=== PATIENT | male | born 1945 | race Caucasian/White ===

== ENCOUNTER 2020-03-20 05:35 | Day surgery (SDC) | payer MEDICARE, OTHER ==
--- NOTE | 2020-03-13 10:00 | NUR ---
PT SEEN FOR PREADMIT TODAY. PT REPORTS HX HTN BUT NO LONGER TAKES MEDICATION. PT REPORTS FAINTING/PASSING OUT WITH HTN MEDICATIONS. PT STATES, "MY BLOOD PRESSURE WAS NEVER REALLY A PROBLEM BUT I TRIED MEDICATIONS THAT JUST DIDN'T WORK." BP TODAY IN OFFICE 134/82. DENIES SEEING FORM SETTER SUPERVISOR. INSTRUCTIONS GIVEN AND ALL QUESTIONS ANSWERED.
[~2020-03-20] VITALS: Ht 188 cm; Wt 87.1 kg
--- NOTE | ~2020-03-20 | OR ---
[facility] [address], [place] [address] Draft DATE OF OPERATION: 03/20/2020 SURGEON: Meir Garrett MD PREOPERATIVE DIAGNOSES: 1. History of stage Ta low-grade bladder cancer, with previous tumor recurrences. 2. Benign prostatic hyperplasia with lower urinary tract symptoms. POSTOPERATIVE DIAGNOSES: 1. History of stage Ta low-grade bladder cancer, with previous tumor recurrences. 2. Benign prostatic hyperplasia with lower urinary tract symptoms. 3. Subcentimeter papillary tumor located on the left lateral wall of the bladder, consistent with tumor recurrence. NAMES OF PROCEDURES: 1. Urethral dilation using Isai sounds from 18-Grenadian to 30-Grenadian. 2. Transurethral resection of bladder tumor-small. 3. Intravesical instillation of 40 mg in 20 mL of mitomycin chemotherapy. ANESTHESIA: General. ESTIMATED BLOOD LOSS: Minimal. COMPLICATIONS: None. SPECIMENS: The subcentimeter papillary tumor was resected completely and the resected fragments were placed in a specimen cup to be sent to pathology for evaluation. DRAINS: A 20-Grenadian two-way catheter capped and secured to the patient's abdomen after intravesical instillation of mitomycin chemotherapy. INDICATIONS FOR PROCEDURE: Mr. Funes is a very pleasant 74-year-old gentleman with a history of stage Ta low-grade bladder cancer, who presents today to undergo TURBT, small for resection of an obvious tumor recurrence noted on recent surveillance cystoscopy. He is a former PATIENT NAME: NATALYA FUNES OPERATIVE REPORT DATE OF : 43 REPORT #: [id number] PHYSICIAN: MEIR GARRETT MD PCP: NO PRIMARY CARE PHYSICIAN REPORT IS CONFIDENTIAL AND NOT TO BE RELEASED WITHOUT AUTHORIZATION [facility] [address], [place] [address] Flores, who resected a large papillary tumor in 2009. He experienced another bladder tumor recurrence in 2012. He had been disease-free since just recently when he was noted to have a subcentimeter papillary tumor located on the left lateral wall of his bladder. He presents today to undergo the aforementioned procedure. OPERATIVE FINDINGS: 1. Digital rectal examination was performed today with the patient under anesthetic. The rectal examination revealed an enlarged 60 g prostate that was soft, smooth, and symmetric with no focal nodules. 2. Diagnostic cystoscopy reveals a partially circumscribed papillary mass located lateral to the left ureteral orifice. The left ureteral orifice did not appear to be involved with any tumor. This tumor was resected using a 24-Grenadian bipolar loop down to the level of the perivesical fat without difficulty. Because there was no obvious evidence of involvement of the left ureteral orifice, I did not feel the need to resect this area. 3. There were no other obvious evidence of tumor recurrence throughout the remaining bladder wall. The right ureteral orifice appeared normal as well. Of note that the patient does have a slightly elevated bladder neck, but no significant lateral lobe hypertrophy. 4. After the tumor was successfully resected and the tumor bed cauterized, a 20-Grenadian two-way Larkin catheter was inserted into the patient's bladder. The mitomycin was then infused through the catheter into the patient's bladder without difficulty. The catheter was then capped and then secured to the patient's abdomen. A total of 40 mg in 20 mL of mitomycin was instilled into the patient's bladder. DESCRIPTION OF PROCEDURE: After informed consent was obtained, the patient was taken back to the operating room. He was transferred from the [facility] to the operating room table, where general anesthesia was induced. He was then placed in the dorsal lithotomy position and his genitalia were prepped and draped in a standard sterile fashion. Using a 30-degree lens, a 28-Grenadian sheath was inserted into the patient's bladder using a visual obturator. Diagnostic cystoscopy was then performed. Please see above findings. The visual obturator was then switched out for the resectoscope. Prior to this, the patient's urethra was dilated using Oscoda sounds from 18-Grenadian to 30-Grenadian without difficulty. Once the resectoscope was in the bladder, I had noted the location of the bilateral ureteral orifices and then noted the location of the papillary tumor on the left lateral wall of the bladder. I then resected the tumor in a total of 3 strokes. I did resect it down to the level of the perivesical fat. The base of the tumor was then resected and cauterized without difficulty. The 3 fragments of the tumor were then collected from the bladder using a Roz syringe and placed it in a specimen cup to be sent to Pathology. The bipolar resectoscope was then used to cauterize the tumor base and the biopsy bed. I then again thoroughly evaluated the bladder to be sure I was not missing PATIENT NAME: NATALYA FUNES OPERATIVE REPORT DATE OF : 43 REPORT #: [id number] PHYSICIAN: MEIR GARRETT MD PCP: NO PRIMARY CARE PHYSICIAN REPORT IS CONFIDENTIAL AND NOT TO BE RELEASED WITHOUT AUTHORIZATION [address] [address] Draft any other areas of recurrence. Once I was satisfied that the lesion had been removed and the area cauterized, I removed the resectoscope. A catheter was placed in the patient's bladder and then was manually irrigated to confirm adequate placement. The patient's bladder was then drained completely and then 40 mg in 20 mL of mitomycin was instilled into the patient's bladder, and the catheter was capped and secured to the abdomen. The procedure was then terminated. The patient tolerated the procedure well without any complication. He will now be transferred to the postanesthesia care unit in stable condition. DISPOSITION: I discussed the results of today's procedure with both the patient and his and answered all of their questions. Because I did resect down to the level of the perivesical fat, I told the patient today that I would like for him to go home with a catheter and maintain the catheter to gravity drainage for a week to allow proper healing of his bladder. Because he does have a history of BPH and incomplete bladder emptying, I want to be sure that his bladder empties completely during the healing portion of his recovery. Because there was no resection at the level of the left ureteral orifice, he did not require an indwelling left ureteral stent today. He will return to clinic in one week to meet up with the clinic nurse to undergo a voiding trial. She will schedule a followup with me, at which point, we will discuss the results of his biopsy. He was sent home today with cephalexin 500 mg p.o. b.i.d., along with B and O suppository and Percocet as needed. MD OSVALDO Lyons/GLORIA /[id number] Copies: ~ PATIENT NAME: NATALYA FUNES OPERATIVE REPORT DATE OF : 43 REPORT #: [id number] PHYSICIAN: MEIR GARRETT MD PCP: NO PRIMARY CARE PHYSICIAN REPORT IS CONFIDENTIAL AND NOT TO BE RELEASED WITHOUT AUTHORIZATION
[~2020-03-20 05:35] MED LIST: ADULT LOW DOSE81 MG PO; FISH OIL 1,0001 EAC2 NG; NORCO 5-325 TA1 EACH PO; OCUVITE TABLET1 EAC1 PO; PROTONIX40 MG PO; PYRIDIUM200 MG PO; TIZANIDINE HCL4 M1 PO; VITAMIN B-250 MG PO; ZESTORETIC 20-251 EA PO; ZYRTEC10 MG PO
--- NOTE | 2020-03-20 08:27 | NUR ---
03/20/20 0827 Kerry Correa 0819- PT TO PACU IN SF POSITION EYES OPEN. FOLLOWS COMMANDS APPROPRIATELY BUT DROWSY. STATES HE IS COMFORTABLE. DENIES PAIN NAUSEA. BREATHING EASY AND UNLABORED. SPO2 >95% ON 10L O2 VIA SIMPLE MASK. 0825- PT CONTINUES TO REST. BREATHING EASY AND UNLABORED. SPO2 >95%. O2 TITRATED DOWN TO [address], CLAMPED AND TAPED TO ABDOMEN. PT DENIES NAUSEA AND PAIN.
[2020-03-20] MEDS ORDERED: PERCOCET 5-3251 EACH PO (09:06)
[2020-03-20] MEDS ORDERED: KEFLEX500 MG PO (09:06)
[2020-03-20] MEDS ORDERED: BELLADONNA-OPIU30 MG PR (09:07)
--- NOTE | 2020-03-20 09:50 | NUR ---
LE 0929: MITOMYCIN IS EMPTIED OUT OF BLADDER, 350MLS OF MARCUS COLORED URINE IS EMPTIED OUT OF BLADDER. GRAVITY BAG IS ATTACHED TO 20 FR TAYLOR. LE 0945: PT IS GIVEN PUDDING AND EDUCATED TO CALL WHEN HE IS FINISHED. HE IS TOLERATING WATER.
--- NOTE | 2020-03-20 10:18 | NUR ---
CRISTELA 0955: PT IS GIVEN VERBAL DC INSTRUCTIONS, HE VERBALIZES UNDERSTANDING. PT IS GIVEN EDUCATION ON CARING FOR TAYLOR, HE VERBALIZES UNDERSTANDING. PT DRESSES HIMSELF. HE IS TAKEN TO VEHICLE VIA WC, HE TRANSFERS HIMSELF FROM WC TO VEHICLE.
--- NOTE | 2020-03-22 13:09 | PATH ---
[facility] [address] [facility] [place], [place] [address] Signed THIS IS AN ADDENDUM REPORT SPECIMEN(S): A LEFT LATERAL WALL TUMOR SPECIMEN SOURCE: A. LEFT LATERAL WALL TUMOR CLINICAL HISTORY: Left lateral wall bladder tumor. Pre: Bladder cancer, mass. Post: Same, TURBT. 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 COMMENT: As part of [facility]' Quality Improvement Program, this case was reviewed by another member of our pathology staff. DN:MIRIAM:renard:C2NR MICROSCOPIC EXAMINATION: Histologic sections of all submitted blocks are examined by light microscopy. These findings, together with the gross examination, support the pathologic diagnosis. GROSS DESCRIPTION: The specimen, labeled "FW, A.," and designated on the requisition "left lateral wall bladder tumor," is received in formalin and consists of three corado-pink rubbery tissue fragments measuring 1.6 x 1.3 x 0.4 cm in aggregate and weighing less than 2 grams. Specimen is entirely submitted in cassette (A1). AT (under the direct supervision of a pathologist) The Gross Description was prepared using a voice recognition system. The report was reviewed for accuracy; however, sound-alike word errors, addition and/or deletions may occur. If there is any question about this report, please contact Client Services. PERFORMING LABORATORY: The technical component was performed by [facility], [address] [place] [id number] (Tank Shop Supervisor: Minnie Maldonado MD; CLIA# [id number]). Professional interpretation was performed by PATIENT NAME: NATALYA CASTILLO PATHOLOGY DATE OF : 43 REPORT #: [id number] PHYSICIAN: BRITTANYYTE PATHOLOGY PCP: NO PRIMARY CARE PHYSICIAN REPORT IS CONFIDENTIAL AND NOT TO BE RELEASED WITHOUT AUTHORIZATION [facility] [address] [place], [place] [address] Signed [facility], [facility], [address] [place] [address] (CLIA#: [id number]). REASON FOR ADDENDUM: To add results of cytology review. ADDENDUM COMMENT: The patient's recent atypical urine cytology was reviewed ([id number]). The atypical cells present on the cytology correlate with the bladder biopsy. DN:[facility] Diagnostician: Red Raya MD Pathologist Electronically Signed 03/22/2020 Copies: ~ PATIENT NAME: NATALYA CASTILLO PATHOLOGY DATE OF : 43 REPORT #: [id number] PHYSICIAN: BRITTANYYTE PATHOLOGY PCP: NO PRIMARY CARE PHYSICIAN REPORT IS CONFIDENTIAL AND NOT TO BE RELEASED WITHOUT AUTHORIZATION
== END 2020-03-20 10:05 | disposition home or self-care (01) ==
LOC: DS 05:35
PROVIDERS: Urology
PROC: 0TBC0ZX Excision of Bladder Neck, Open Approach, Diagnostic (ICD-10-PCS; principal; 2020-03-20 06:45)
DX: C67.8 Malignant neoplasm of overlapping sites of bladder (principal); N40.1 Benign prostatic hyperplasia with lower urinary tract symptoms; N13.8 Other obstructive and reflux uropathy; K21.9 Gastro-esophageal reflux disease without esophagitis; Z79.899 Other long term (current) drug therapy; Z79.82 Long term (current) use of aspirin; Z98.890 Other specified postprocedural states; Z88.0 Allergy status to penicillin; Z88.5 Allergy status to narcotic agent
CPT/HCPCS: 00912; C1769; J0696; J1100; J1885; J2250; J2405; J2704; J3010; J7121; J9280

== ENCOUNTER 2021-02-24 13:41 | Emergency (ER) | payer MEDICARE, OTHER ==
[~2021-02-24] VITALS: Ht 188 cm; Wt 78.9 kg
[~2021-02-24 13:41] MED LIST changes: +BELLADONNA-OPIU30 MG PR; +KEFLEX500 MG PO; +PERCOCET 5-3251 EACH PO
[2021-02-24] MEDS ORDERED: FLOMAX0.4 MG PO (14:14)
[2021-04-09] MEDS ORDERED: PROTONIX40 M1 PO (09:48)
== END 2021-02-24 18:15 | disposition home or self-care (01) ==
LOC: ED 13:41
DX: K52.9 Noninfective gastroenteritis and colitis, unspecified (principal); I10 Essential (primary) hypertension; K21.9 Gastro-esophageal reflux disease without esophagitis; Z88.6 Allergy status to analgesic agent; Z88.8 Allergy status to other drugs, medicaments and biological substances; Z88.0 Allergy status to penicillin; Z88.2 Allergy status to sulfonamides; Z88.1 Allergy status to other antibiotic agents; Z88.5 Allergy status to narcotic agent; Z79.899 Other long term (current) drug therapy; Z79.82 Long term (current) use of aspirin
CPT/HCPCS: 80053; 81001; 83735; 85025; 99284; J7040

== ENCOUNTER 2021-04-12 06:20 | Observation (INO) | payer MEDICARE, OTHER ==
[~2021-04-12] VITALS: Ht 185.4 cm; Wt 86.4 kg
[~2021-04-12 06:20] MED LIST changes: +FLOMAX0.4 MG PO; +PROTONIX40 M1 PO
--- NOTE | 2021-04-12 10:18 | NUR ---
04/12/21 1018 Sheets,Jazmin 3382 PT ARRIVED TO PACU ON 6L VIA MASK, WITH ORAL AIRWAY IN PLACE. RESP EVEN AND UNLABORED. VSS. PT NONAROUSABLE TO PAINFUL STIMULI.
--- NOTE | 2021-04-12 11:25 | NUR ---
PT.'S WAITING IN THE ROOM. UPDATED HER AND DISCUSSED WHAT TO EXPECT.
--- NOTE | 2021-04-12 11:45 | NUR ---
REPORT RECEIVED FROM HIDE HANDLER AND PT ARRIVED VIA STRETCHER. VITALS STABLE. IV SITE FLUSHES WELL AND IVF ADMIN. PT. REPORTS 10 SHARP/ACHING PAIN. PT. HAS HAD FENTANYL, TYLENOL AND DILAUDID IN PACU AND PAIN HAS NOT BEEN UNDER CONTROL. PT. STATES PERCOCET HAS WORKED IN THE PAST. GIVEN PUDDING AND CRACKERS AND WILL ADMIN PERCOCET AFTER EATING. ACTICOAT DRESSING AT INCISION SITE HAS SMALL AMOUNT OF SHADOWING BUT IS INTACT. FRANK DRAIN PATENT AND DRAINING SANGUINOUS DRAINAGE. BOWEL TONES HYPOACTIVE. DISCUSSED PAIN MANAGMENT, AMBULATING AND POC. PT. LEFT RESTING WITH CALL LIGHT IN REACH.
--- NOTE | 2021-04-12 13:00 | NUR ---
PT. PLACED ON ROOM AIR AND 02 SAT. WAS 93%. FRANK DRESSING HAS SANGUINOUS DRAINAGE ON GAUZE.DRAIN STRIPPED AND SAFETY PINNED TO GAUZE. NO CHANGES TO INCISION DRESSING. BOWEL TONES ACTIVE. PT. REPORTS TOLERABLE ABDOMINAL PAIN AT THIS TIME. TOLERATING PO FLUIDS AND REGULAR DIET AND DENIES NAUSEA. AMBULATED AROUND THE ROOM AND VOIDING. PT. STATES HE HAS A HARD TIME EMPTYING BLADDER DUE TO BLADDER CANCER. LEFT RESTING IN BED WITH CALL LIGHT IN REACH.
--- NOTE | 2021-04-12 14:10 | NUR ---
PT. IS ALERT AND ORIENTED, ON ROOM AIR. PT. REQUESTED ATHELETE FOOT MEDS. NOTIFIED AND OKAY IF BRINGS IN HOME MED FOR FEET. INCISION SITE DRESSING HAS A SMALL AMOUNT OF NEW SHADOWING BUT IS INTACT. FRANK DRESSING SHADOWING REMAINS UNCHANGED. PT. REPORTS 5/10 PAIN, BUT REFUSES PAIN MED AT THIS TIME. PT. HAS VOIDED 75ML SINCE ARRIVAL. HE STATES BLADDER CANCER MAKES IT DIFFICULT TO VOID. WILL CONTINUE TO MONITOR.
--- NOTE | 2021-04-12 15:15 | NUR ---
PT. ABLE TO VOID AGAIN AND USED CALL LIGHT APPROPRIATELY TO EMPTY URINAL. ABDOMINAL PAIN INCREASED AND IS CONSTANT. ADMIN. 4MG IVP MORPHINE. DRESSING HAS SEVERAL SMALL AREAS OF SANGUINOUS SHADOWING. FRANK DRAIN PATENT AND DRESSING HAS SANGUINOUS SHADOWING. BOWEL TONES ACTIVE. PT. TOLERATED REG. DIET AND PO FLUIDS. LEFT RESTING WITH IN THE ROOM
[2021-04-12] MEDS ORDERED: CICLOPIROX6.6 ML TOP (16:43)
[2021-04-12] MEDS ORDERED: PANTOPRAZOLE SO40 MG PO (16:43)
[2021-04-12] MEDS ORDERED: ATHLETIC FOOT C30 GM TOP (17:41)
--- NOTE | 2021-04-12 17:41 | NUR ---
MED REC COMPLETE
--- NOTE | 2021-04-12 19:20 | NUR ---
SHIFT REPORT RECEIVED FROM ERUM PALMA. PT RESTIN IN BED. PAIN 09/27, DENIES NEED FOR INTERVENTION. CPOX @ 98% ON RA. NO NEEDS AT THIS TIME. CALL LIGHT IN REACH.
--- NOTE | 2021-04-12 21:30 | NUR ---
ASSESSMENT, VS AND I&O COMPLETED. GCS 15, A&O X4. LUNGS CLEAR, HEART TONES REGULAR.ABD MILDLY DISTENDED, BOWEL TONES ACTIVE, TENDER, INCISIONS COVERED, ACTICOAT 1//2 COVERED WITH SHADOWING, FRANK WNL, SS OUTPUT. CMS INTACT. IV WNL, FLUSHED WELL, IV FLUIDS INFUSING PER ORDER. PT DENIES PAIN. NO OTHER NEEDS. CALL LIGHT IN REACH.
--- NOTE | 2021-04-13 | NUR ---
PT RESTING IN BED, EYES CLOSED. RR EVEN, UNLABORED. CALL LIGHT IN REACH.
--- NOTE | 2021-04-13 00:53 | NUR ---
PT REPORTS DRAINAGE FROM INCISION. 3/4 OF ACTICOAT IS SATURATED WITH DILUTE BLOOD. DRESSING CHANGED, FRANK SITE DRESSING CHANGED, GAUZE AND TAPE. NO OTHER NEEDS. CALL LIGHT IN REACH.
--- NOTE | 2021-04-13 03:40 | NUR ---
PT STATES HE HAS 9/10 ABD PAIN, PRN PAIN MED PROVIDED. ASSESSMENT COMPLETED. FRANK DRAIN DRESSING CHANGED. IV WNL, IV FLUIDS INFUSING PER ORDER. NO OTHER NEEDS AT THIS TIME. ICE PACK PROVIDED. CALL LIGHT IN REACH.
--- NOTE | 2021-04-13 06:47 | NUR ---
PT PAIN WELL MANAGED WITH SCHEDULED AND PRN MEDS. DRESSINGS CHANGED X3 DUE TO MODERATE, ESTIMATED 100ML, BLOOD DRAINAGE AT INCISION SITE. VSS, UOS. IV WNL. 60ML SS OUTPUT IN FRANK DRAIN. ABD FIRM, TENDER, BOWEL TONES ACTIVE WITH MILD DISTENTION. PT DOES NOT REPORT FLATUS YET.
--- NOTE | 2021-04-13 08:00 | NUR ---
REPORT RECEIVED FROM NIGHT RN AND PT. CARE RESUMED. PT. IS ALERT AND ORIENTED. HE AMBULATED WITH SBA FROM BED TO CHAIR. HE REPORTS ACHING ABDOMINAL PAIN AT INCISION SITE AND LOWER BACK PAIN. HE STATES HE WILL WAIT FOR PERCOCET UNTIL 930. NIGHT RN REPORTS CHANGING DRESSING 3X DUE TO DRAINAGE SEEPING THROUGH OPSITE. INCISION SITE DRESSING HAS RED SHADOWING THROUGHOUT BUT IS NOT UNDER OPSITE. FRANK DRAIN PATENT. BOWEL TONES HYPOACTIVE THROUGHOUT. PT. REPORTS NOT PASSING GAS. IV SITE WNL AND FLUSHES WELL. DISCUSSED POC AND AMBULATING THIS MORNING. PT. LEFT RESTING IN BED WITH CALL LIGHT IN REACH.
--- NOTE | 2021-04-13 09:30 | NUR ---
PT REPORTS DRESSING IS LEAKING THROUGH GOWN. FRANK GAUZE DRESSING SATURATED. GAUZE REPLACED. INCISION SITE DRESSING REINFORCED WITH OPSITE. FRANK DRAIN EMPTIED AND STRIPPED. PT. BROUGHT WATER AND NEW GOWN. LEFT RESTING WITH CALL LIGHT IN REACH
--- NOTE | 2021-04-13 10:17 | NUR ---
PATIENT AWAKE IN CHAIR, RN ЮЛИЯ IN ROOM. VITALS AND I&OS CHARTED. LINEN AND GOWN CHANGED. ROOM TIDIED, CALL LIGHT IN REACH
--- NOTE | 2021-04-13 12:19 | NUR ---
ROUNDING ON PT. AND HE DENIES PAIN AT THIS TIME. FRANK DRAIN DRESSING IS LOOSENED WITH SERISANGUINOUS DRAINAGE. REMOVED DRESSING. INCISION SITE DRESSING. SATURATED IN SPOTS, BUT STILL INTACT. WILL CONTINUE TO MONITOR
--- NOTE | 2021-04-13 14:51 | NUR ---
VITALS AND I&OS CHARTED. FRANK DRAINED, PATIENT AMBULATED 2X AROUND NURSES STATION PUSHING IV POLE, TOLERATED WELL. BACK IN BED, CALL LIGHT AND PERSONAL ITEMS IN REACH
--- NOTE | 2021-04-13 15:30 | NUR ---
SPOKE WITH PATIENT IN ROOM. PATIENT WATCHING TV, RELAXED IN BED. PATIENT ORIENTED. PATIENT LIVES IN HOME WITH . DRIVES. WORKS OUTSIDE, IS VERY ACTIVE. PATIENT DENIES USING DME ALTHOUGH HE HAS A CANE AT HOME TO USE. DENIES FINANCIAL PROBLEMS FOR COST OF MEDS/FOOD/UTILITIES. STATES HIS WILL DRIVE HIM HOME AT DISCHARGE. FEELS SAFE TO RETURN HOME. STATES HE HAS BEEN UP WALKING AND FEELS STEADY ON HIS FEET.
--- NOTE | 2021-04-13 16:15 | PATH ---
[facility] [address] [place], [place] [address] Signed SPECIMEN(S): A GALLBLADDER WITH STONES SPECIMEN SOURCE: A. GALLBLADDER WITH STONES CLINICAL HISTORY: Laparoscopic cholecystectomy with IOC, poss. open cholecystectomy. Chronic cholecystitis. FINAL PATHOLOGIC DIAGNOSIS: Gallbladder, cholecystectomy: - Chronic cholecystitis. - Cholelithiasis. NAL:cml:C2NR MICROSCOPIC EXAMINATION: Histologic sections of all submitted blocks are examined by light microscopy. These findings, together with the gross examination, support the pathologic diagnosis. GROSS DESCRIPTION: The specimen, labeled "FW, A.," and designated on the requisition "gallbladder and stones," is received in formalin and consists of Specimen: Disrupted gallbladder. Dimensions: 8.6 x 3.4 cm. Serosa: Violaceous and smooth. Cystic Duct: Unable to grossly identify. Calculi: Multiple black, crystalline calculi measuring 3.2 x 1.5 x 0.4 cm in aggregate. Mucosa: Green-brown and roughened. Wall thickness: Up to 0.3 cm. Lymph node: No pericystic lymph nodes are grossly identified. Additional: None. Assembly Inspector Helper sections are submitted in cassette (A1). AT (under the direct supervision of a pathologist) The Gross Description was prepared using a voice recognition system. The report was reviewed for accuracy; however, sound-alike word errors, addition and/or deletions may occur. If there is any question about this report, please contact Client Services. PERFORMING LABORATORY: PATIENT NAME: NATALYA CASTILLO PATHOLOGY DATE OF : 43 REPORT #: [id number] PHYSICIAN: JOEY ROJAS PCP: IQRA SALGADO PA-C REPORT IS CONFIDENTIAL AND NOT TO BE RELEASED WITHOUT AUTHORIZATION [facility] [address] [place], [place] [address] Signed The technical component was [place] [address] (Brazing Machine Operator Automatic: Minnie Maldonado MD; CLIA# [id number]). Professional interpretation was performed by [facility] [address] [address] (CLIA# [id number]). Diagnostician: Robina West MD Pathologist Electronically Signed 04/13/2021 Copies: ~ PATIENT NAME: NATALYA CASTILLO PATHOLOGY DATE OF : 43 REPORT #: [id number] PHYSICIAN: JOEY ROJAS PCP: IQRA SALGADO PA-C REPORT IS CONFIDENTIAL AND NOT TO BE RELEASED WITHOUT AUTHORIZATION
--- NOTE | 2021-04-13 18:05 | NUR ---
PATIENT UP IN ROOM. VITALS AND I&OS CHARTED. PATIENT FEELING A LITTLE RUN DOWN THIS EVENING, HAS BEEN UP AMBULATING QUITE A BIT THIS AFTERNOON.RN ЮЛИЯ NOTIFIED. CALL LIGHT IN REACH
--- NOTE | 2021-04-13 19:20 | NUR ---
RECEIVED REPORT FROM ЮЛИЯ PALMA ABOUT PATIENT, INTRODUCED AT BEDSIDE. PATIENTHERE POST LAP SREE THAT TURNED INTO OPEN SREE. PATIENT HAS SOME TROUBLES WITH VOIDING BUT ABLE TO STAND AND USE URINAL. HAS DRESSIN IN PLACE CHANGED BY RN LAST NIGHT AND DR CLEVELAND CAME TO ASSESS SITE TODAY. HAS FRANK IN PLACE, GIVEN PERCOCET AND ZOFRAN REPORTS LAST BM 2 DAYS AGO. ON REG DIET. MAINTENANCE FLUIDS RUNNING.
--- NOTE | 2021-04-13 21:10 | NUR ---
IN ROOM TO GIVE EVENING MEDS SEE EMAR, PATIENT REPORTS HE JUST GOT BACK TO BED FROM HAVING A BM AND NOTED TO HAVE PULLED HIS IV, THE TIP IS INTACT STILL CONNECTED TO THE MAINTENANCE FLUIDS, DISCARDE BAG AND TUBING. SITE NOT BLEEDING OR SWOLLEN. REPLACED IV TO RIGHT HAND PER PATIENT REQUEST AND IN A DIFFERENT VEIN. ASKED PATIENT IF HE WOULD LIKE HIS SCHEDULED TYLENOL AT 2200 HE SATES "YES" AND "I DON'T REALLY NEEDS ANYTHING JUST NEED TO GO HOME" INSTRUCTED PATIENT TO BE CAREFUL OF IV NOT TO PULL IT OUT AGAIN, REQUEST HELP GETING UP IF NEEDED. CALL LIGHT IN REACH.
--- NOTE | 2021-04-13 23:55 | NUR ---
IN TO CHECK ON PATIENT, PATIENT UP TO VOID AGAIN. DENIES NEEDING ANYTHING AT THIS MOMENT. STETS HE WILL TRY TO GO TO SLEEP AGAIN. CALL LIGHT IN REACH.
--- NOTE | 2021-04-14 00:16 | NUR ---
PATIENT'S GOWN CHANGED DUE TO LEAKAGE FROM FRANK DRAIN AND POST SURGICAL SITE TO ABDOMEN. BLOOD HAS ONLY SATURATED THE BOTTOM HALF OF THE ACTICOAT DRESSING. PLACED ABD PAD TO LOWER HALF OF SITE TO REINFORCE THIS AREA ALSO 4 X 4 GUAZE UNDER FRANK DRAIN TUBE. APPLIED MEDIPORE TAPE TO OUTSIDE EDGES.
--- NOTE | 2021-04-14 02:38 | NUR ---
PT CALLS TO USE THE BR, PROVIDED. NO OTHER NEEDS. CALL LIGHT IN REACH.
--- NOTE | 2021-04-14 04:04 | NUR ---
PT CALLS TO USE BR, PROVIDED. FRANK DRAIN EMPTIED OF 50ML SS OUTPUT. NO OTHER NEEDS. CALL LIGHT IN REACH.
--- NOTE | 2021-04-14 06:16 | NUR ---
PT DECLINED HIS TYLENOL SCHEDULED FOR THIS MORNING. PATIENT GIVEN ENSURE TO DRINK FOR HUNGER COMPLAINTS.
--- NOTE | 2021-04-14 06:44 | NUR ---
PATIENT HAS BEEN RESTING OFF AND ON DURING NIGHT. AT ONE PINT PT GOT UP TO USE BATHROOM AND YANKED OWN OUT ACCIDENTALLY, RESTARTED IV. MAINTENCAE FLUIDS ARE GOING, PATIENT HAS VOIDED MULTIPLE TIMES HAS BEEN DRINKING P.O. FLUIDS. REPLACED HIS DRESSING TO FRANK SITE TWICE. SUGAR HAS GUAZE AND ABD PAD APPLIE OVER BOTTOM OF SURGICAL DRESSING WICH IS SATURATED TO BOTTOM AREA BUT NOT THROUGH OPSITE.
[2021-04-14] MEDS ORDERED: OXYCODON-ACETA1 EAC2 PO (08:31)
[2021-04-14] MEDS ORDERED: CIPROFLOXACIN500 MG PO (08:31)
[2021-04-14] MEDS ORDERED: ACETAMINOPHEN500 MG PO (08:31)
--- NOTE | 2021-04-14 09:15 | NUR ---
REPORT RECEIVED FROM NIGHT RN AND PT. CARE RESUMED. PT. IS ALERT AND ORIENTED. MD REDRESSED, AND FILLED INCISION SITE WITH GAUZE. DRESSING C.D.I. FRANK DRAIN REMOVED. THIS NURSE PLACED STERI-STRIPS ON LEFT SIDE OF INCISION PER ORDER. PT. TOLERATED WELL. DENIES NAUSEA AND PAIN. BOWEL TONES ACTIVE. DISCUSSED DISCHARGE AND POC. PT. LEFT RESTING WITH CALL LIGHT IN REACH.
--- NOTE | 2021-04-16 16:08 | DS ---
[facility] [address], [place] [address] Signed ADMISSION DATE: 04/12/2021 DISCHARGE DATE: 04/14/2021 REASON FOR ADMISSION: This 75-year-old white man is a patient of [facility] Joseph and has had occasions of right upper abdominal pain without radiation into the back. He has had a 25-pound weight loss, which is of uncertain etiology. He is noted to be eating less and less related to the symptoms which are rather progressive. The gallbladder ultrasound performed in the direction of CLIVE Joseph on December 26, 2020 showed probable gallbladder sludge. There is no specific gallstones or wall thickening. He does have family history of biliary disease in a father and brother, who required cholecystectomy. He has had multiple operations from the past including appendectomy in childhood with complications of wound infection and other interventions including bowel obstruction I believe with midline abdominal incisional hernia repair. He is admitted to undergo laparoscopic cholecystectomy, possible open procedure for chronic persistent cholecystitis. PERTINENT PHYSICAL EXAMINATION: GENERAL: Showed a relatively tall and thin white man in no acute distress. HEENT: Trachea midline. CHEST: Clear. HEART: Regular without murmur. ABDOMEN: Somewhat obese, but soft. He had a dense amorphous scar and incision extended from the symphysis pubis cephalad above the umbilicus. He had no palpable mass. HOSPITAL COURSE: On April 12, 2021, attempts were made for laparoscopic cholecystectomy. Entry to the abdominal cavity was not forthcoming despite efforts to do so due to the intensive scarring and adhesions and so on. Additionally, passage of trocar into the rectus space rather than completely into the abdomen was noted, although he had some distention for pneumoperitoneum. The laparoscope was largely in the rectus sheath area and therefore, conversion to a right subcostal incision and open cholecystectomy was undertaken. There was found to be dense omental adhesions to the gallbladder itself. The gallbladder was not acutely inflamed. The liver was fatty infiltrated, pale in color and blunted on the liver edge. Cholecystectomy was performed. There was attempt, but not possible to perform a cholangiogram due to a scarred and impressively narrowed cystic duct. The gallbladder itself had multiple small black stones in addition to the sludge previously noted. The drain was left in place. Additionally, there was noted to be some amount of blood in the rectus sheath related to attempts to enter the abdomen. Postoperatively, he did well though he was painful in his incision as might be expected. Electronically Signed By: JAROD CLEVELAND MD 04/16/21 1608 PATIENT NAME: NATALYA CASTILLO DISCHARGE SUMMARY DATE OF : 43 REPORT #: [id number] PHYSICIAN: JAROD CLEVELAND MD PCP: IQRA SALGADO PA-C REPORT IS CONFIDENTIAL AND NOT TO BE RELEASED WITHOUT AUTHORIZATION [address] [address] Signed Parenteral and oral medications were required for pain control, the drain showed no sign of bile leakage, bleeding, or other problem. The following day, he was noted to have some ecchymosis of the abdominal wall, which was not entirely surprising given the aforementioned causes. He was advanced in his diet which he tolerated well. On day of discharge on April 14, 2021, he is noted to have separation of the skin in the lateral incision. He had been having reinforcement of his abdominal wound dressing due to some oozing of blood. He was found to have a clot in the subcutaneous space, which was evacuated with sterile technique at the bedside without discomfort to the patient. The lateral aspect of the wound was packed with gauze and Steri-Strips will be reapplied on the dominant portion of the subcostal incision. He does feel ready to go home. He is tolerating oral intake well, has minimal incisional pain. Of note, the patient feels he is developing a urinary tract infection. This has been a recurrent problem for him. Notably, he has not had Larkin catheterization throughout the course of this hospitalization and he does have history of bladder tumor managed by the urologist, Dr. Patiño. A urinalysis will be obtained and empiric treatment was begun with Cipro antibiotic considering his allergic profile shows him allergic to sulfa medication. At home, he will change the wound dressing on a b.i.d. basis and is asked to shower on a daily basis with Hibiclens liquid soap. If he has problems at all with the wound, he will let me know. We will see him back in two weeks rather than usual four to assess his wound. If there are problems in the meantime, he will let me know of course. DISCHARGE MEDICATIONS: Include: 1. Cipro 500 mg one tablet p.o. b.i.d. #14. 2. Percocet 7.5/325 1-2 p.o. q.6 hours as needed for severe pain #6. 3. Tylenol 1 g p.o. q. 6 hours p.r.n. pain #30, refill one for lesser pain. He will continue his usual medication of aspirin enteric-coated 81 mg p.o. daily, Zyrtec 10 mg p.o. daily, vitamin A, C, E and lutein one tablet p.o. daily. 4. Riboflavin 50 mg tablets two tablets p.o. daily. 5. Tamsulosin (Flomax) 0.4 mg p.o. b.i.d. 6. Ciclopirox solution apply to toenails as needed at bedtime. 7. Pantoprazole 40 mg p.o. daily. 8. Clotrimazole Athlete's Foot cream 30 g applied b.i.d. as needed to feet. He will hold off on [place] that he was prescribed previously. DISCHARGE DIAGNOSES: Electronically Signed By: JAROD CLEVELAND MD 04/16/21 1608 PATIENT NAME: NATALYA CASTILLO DISCHARGE SUMMARY DATE OF : 43 REPORT #: [id number] PHYSICIAN: JAROD CLEVELAND MD PCP: IQRA SALGADO PA-C REPORT IS CONFIDENTIAL AND NOT TO BE RELEASED WITHOUT AUTHORIZATION [facility] [address] [place] [id number] Signed 1. Chronic calculous cholecystitis, status post laparoscopic cholecystectomy, conversion to open cholecystectomy due to intraabdominal adhesions. 2. 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 3. Distant history of appendectomy with complex postoperative care in childhood. 4. Probable incisional hernia with repair in the past. 5. Multiple allergies including penicillins, sulfa medications, codeine, aspirin. MD FARZAD Oakley/GLORIA /[id number] cc: [facility] Joseph Copies: ~ Electronically Signed By: JAROD CLEVELAND MD 04/16/21 1608 PATIENT NAME: NOLBERTONATALYA BEAL DISCHARGE SUMMARY DATE OF : 43 REPORT #: [id number] PHYSICIAN: JAROD CLEVELAND MD PCP: IQRA SALGADO PA-C REPORT IS CONFIDENTIAL AND NOT TO BE RELEASED WITHOUT AUTHORIZATION
--- NOTE | 2021-04-16 16:08 | OR ---
[facility] [address], [place] [address] Signed DATE OF OPERATION: 04/12/2021 SURGEON: Jarod Clveeland MD PREOPERATIVE DIAGNOSIS: Chronic cholecystitis with sludge. POSTOPERATIVE DIAGNOSIS: Chronic cholecystitis with multiple gallstones and sludge. PROCEDURE: Laparoscopy with conversion to open cholecystectomy with attempted, but failed cholangiogram. ANESTHESIA: General endotracheal; John Lamb CRNA. INDICATIONS: This 75-year-old white man is a patient of [facility] Joseph and has had occasional right upper abdominal pain without radiation to the back. He has had a 25-pound weight loss, which was of uncertain etiology. He thinks he is eating less related to the pain. A gallbladder ultrasound was performed under the direction of [facility] Joseph on December 26, 2020 showing probable gallbladder sludge. There is no specific stone or wall thickening. He does have significant family history of biliary disease in the father and a brother, who required cholecystectomy. He has multiple operations from the past including appendectomy and other interventions including probable midline abdominal incisional hernia repair. Given these symptoms and signs highly suggestive of chronic cholecystitis, cholecystectomy is offered. The patient and his understand the risks of bleeding, infection, bile duct injury, need for open procedure and other unforeseen complications related to cholecystectomy and wished to proceed. FINDINGS: There was a dense eschar in the midline incision and abdominal area. Attempts at open Missy cannulation of the abdomen for pneumoperitoneum was unsuccessful and on that basis, open cholecystectomy was required. The gallbladder itself was chronically inflamed, not acutely inflamed, but had dense omental adhesions throughout most of it. The cystic duct was rather small. Attempts at cannulation for cholangiogram were unsuccessful. On that basis, cholangiogram was not performed. A drain was left in situ. There was no sign of bile leak at the conclusion of operation, but the drain was left nevertheless. Additionally, the liver was quite fatty infiltrated, blunted and Electronically Signed By: JAROD CLEVELAND MD 04/16/21 1608 PATIENT NAME: NATALYA CASTILLO OPERATIVE REPORT DATE OF : 43 REPORT #: [id number] PHYSICIAN: JAROD CLEVELAND MD PCP: IQRA SALGADO PA-C REPORT IS CONFIDENTIAL AND NOT TO BE RELEASED WITHOUT AUTHORIZATION [facility] [address] [place] [id number] Signed pale in color. DESCRIPTION OF PROCEDURE: The patient was brought to the operating room, given a general endotracheal anesthetic. Preoperative antibiotic Ancef was given. Sequential compression device stockings were used and heparin subcutaneously administered. The abdomen was clipped and prepared with a chlorhexidine solution and draped sterilely. Palpation of the abdomen showed a dense midline scar extending well above the umbilicus. Palpation in the region of the umbilicus made it quite obvious that entry to the abdomen in that area would be unsuccessful. On that basis, a small transverse incision was made to the right of the midline in the epigastric area. Dissection carried through subcutaneous tissue and the anterior rectus sheath and the midline fascia incised. The rectus muscle was in the posterior sheath incised. Digital examination showed probably the round ligament impairing passage into the abdomen. With blunt dissection, a window was created, considered the peritoneal cavity and a Missy cannula gently inserted. Pneumoperitoneum was achieved to a level of 14 mmHg and a laparoscope inserted. At this point, it was quite clear that the abdomen was not fully cannulated to allow for entry of the scope and probably due to dense adhesions, pneumoperitoneum was to the rectus space actually. The basis of this and difficulty of entry to the abdomen, open operation was deemed advisable and certainly safer. A right subcostal incision was made in the standard way incising the anterior rectus sheath as well as the rectus muscle in the posterior rectus sheath, allowing for entry into the abdomen. There were adhesions in the lower part of the abdomen, the upper part was relatively free of adhesions, but there were dense omental adhesions to the gallbladder, the gallbladder was relatively small, not acutely inflamed. The Bookwalter retractor was affixed to the table. Meticulous care was taken freeing dense omental adhesions from the gallbladder itself, ultimately allowing for application of a ring clamp to the gallbladder. Using blunt and electrocautery dissection, the surrounding soft tissue was freed up. With aid of the Bookwalter retractor, duodenum and other local structures were maintained in a safe position. gallbladder was incised at the apex and dissection carried distalward. Clips were applied to the cystic arterial branches as necessary. Ultimately, the infundibulum of the gallbladder and the cystic duct were completely well defined. A tonsil clamp was applied to the cystic duct. The right angle clamp to the gallbladder side and the gallbladder excised. It was opened on the back table by the circulating nurse and found to have not only sludge, multiple dense small black stones. Attempts at cannulation of the cystic duct were unsuccessful. Various maneuvers were used to do this. At one point, the catheter was thought to be well positioned in the cystic duct, but infusion of saline showed leakage and therefore further dissection of Electronically Signed By: JAROD CLEVELAND MD 04/16/21 8845 PATIENT NAME: NATALYA CASTILLO OPERATIVE REPORT DATE OF : 43 REPORT #: [id number] PHYSICIAN: JAROD CLEVELAND MD PCP: IQRA SALGADO PA-C REPORT IS CONFIDENTIAL AND NOT TO BE RELEASED WITHOUT AUTHORIZATION [facility] [address] [place], [place] [address] Signed the cystic duct was taken more medially. It was ultimately cleared, the cystic duct was rather fibrotic, attempts at providing a luminal entry were unsuccessful. Rather than further dissect out the common duct itself for a butterfly catheter, cholangiogram was deemed more advisable simply to avoid the cholangiogram at this point. The cystic duct was triply clipped and divided. There was no sign of bile leak or other problem. Irrigation was undertaken and cautery was used in the liver bed to assure hemostasis. Fibrin glue (Tisseel) was applied to the hepatic bed and through a right lateral small stab incision, a 7 mm flat Dionicio drain was placed in the subhepatic space. There was no sign of bile leak, but given the extent of dissection, adhesion and so forth was deemed appropriate. The posterior sheath and its attendant peritoneum were reapproximated with running #1 PDS in a bidirectional fashion, rectus sheath irrigated. The anterior rectus sheath similarly reapproximated. Subcutaneous tissue was irrigated and the skin closed in a running subcuticular of 3-0 Vicryl, Steri-Strips were applied as was an Acticoat silver sponge dressing. The patient was ultimately extubated and transferred to the recovery room in good condition having suffered no complication. Sponge, needle, and instrument counts were reported as correct x3. MD FARZAD Oakley/RONNIEL /[id number] cc: CLIVE Joseph Copies: ~ Electronically Signed By: JAROD CLEVELAND MD 04/16/21 1608 PATIENT NAME: NATALYA CASTILLO OPERATIVE REPORT DATE OF : 43 REPORT #: [id number] PHYSICIAN: JAROD CLEVELAND MD PCP: IQRA SALGADO PA-C REPORT IS CONFIDENTIAL AND NOT TO BE RELEASED WITHOUT AUTHORIZATION
== END 2021-04-14 11:57 | disposition home or self-care (01) ==
LOC: MS 06:20 → DS 06:20 → MS 11:30 → DS 11:31 → MS 11:31
PROVIDERS: ADMIT Surgery; ATTEND Surgery
PROC: 0FT40ZZ Resection of Gallbladder, Open Approach (ICD-10-PCS; principal; 2021-04-12 06:45)
DX: K80.10 Calculus of gallbladder with chronic cholecystitis without obstruction (principal); K82.8 Other specified diseases of gallbladder; N39.0 Urinary tract infection, site not specified; L76.32 Postprocedural hematoma of skin and subcutaneous tissue following other procedure; K66.0 Peritoneal adhesions (postprocedural) (postinfection); K76.0 Fatty (change of) liver, not elsewhere classified; Y83.8 Other surgical procedures as the cause of abnormal reaction of the patient, or of later complication, without mention of misadventure at the time of the procedure; Z85.51 Personal history of malignant neoplasm of bladder; Z90.49 Acquired absence of other specified parts of digestive tract; Z88.0 Allergy status to penicillin; Z88.2 Allergy status to sulfonamides; Z88.5 Allergy status to narcotic agent; Z88.8 Allergy status to other drugs, medicaments and biological substances; Z53.31 Laparoscopic surgical procedure converted to open procedure; Z88.6 Allergy status to analgesic agent
CPT/HCPCS: 00790; 80053; 81001; 85025; 88304; 96372; 96374; 96375; 96376; G0378; J0131; J0690; J1100; J1170; J1644; J2001; J2270; J2370; J2405; J2704; J3010; J7121

== ENCOUNTER 2021-07-23 07:20 | Day surgery (SDC) | payer MEDICARE, OTHER ==
[~2021-07-23] VITALS: Ht 185.4 cm; Wt 83.2 kg
[~2021-07-23 07:20] MED LIST changes: +ACETAMINOPHEN500 MG PO; +ATHLETIC FOOT C30 GM TOP; +CICLOPIROX6.6 ML TOP; +CIPROFLOXACIN500 MG PO; +OXYCODON-ACETA1 EAC2 PO; +PANTOPRAZOLE SO40 MG PO
[2021-07-23] MEDS ORDERED: PROTONIX20 MG PO (07:45)
--- NOTE | 2021-07-23 14:49 | NUR ---
07/23/21 1449 Sheets,Jazmin 1422 PT ARRIVED TO PACU AND WAKES EASILY AND REPORT 1-2/10 PAIN AND TOLERABLE AT THIS TIME. VSS. 1429 O2 REMOVED AND HOB INCREASED. PT SIPPING WATER PER REQUEST. 1445 AT BEDSIDE TALKING TO PT.
--- NOTE | 2021-07-23 15:19 | NUR ---
1505: PT RETURNS TO UNIT VIA STRETCHER FROM PACU. AWAKE AND ALERT ON ARRIVAL. VSS, RESP EVEN AND UNLABORED. PT WITHOUT PAIN OR NAUSEA. TAYLOR CATH DRAINING CLEAR DILUTE URINE. CBI TURNED OFF. ICE WATER AND PUDDING PROVIDED. PT COMFORTABLE WITHOUT NEEDS. CALL LIGHT WITHIN REACH.
--- NOTE | 2021-07-23 15:57 | NUR ---
PT RESTING IN BED TALKING ON CELL PHONE ON ENTRANCE TO PT ROOM. PT DENIES ANY PAIN OR NAUSEA WHEN ASKED AND ASKS, "WHEN CAN I GO HOME?" PT CALLS SPOUSE FOR SAFE RIDE HOME IN ANTICIPATION OF DC HOME SOON. CALL LIGHT WITHIN REACH.
--- NOTE | 2021-07-23 16:45 | NUR ---
1615: TAYLOR CONTS TO DRAIN CLEAR DILUTE URINE. THIRD LUMEN DISCONNECTED FROM CBI AND CAPPED. GRAVITY TAYLOR DISCUSSED AND PT VOICES UNDERSTANDING AT THIS TIME. SL REMOVED WITH CATH TIP INTACT AND PRESSURE APPLIED TO SITE, WNL. 1630: DC INSTRUCTIONS PROVIDED AND DISCUSSED ORDERED. PT VOICES UNDERSTANDING AND DENIES QUESTIONS AND CONCERNS AT THIS TIME. 1635: PT WHEELED OFF OF UNIT IN WC BY LOUIE FOWLER FOR DC AT THIS TIME. NO PHYSICAL S/S OF DISTRESS
--- NOTE | 2021-07-24 18:16 | OR ---
[facility] [address] [place] [address] Signed DATE OF OPERATION: 07/23/2021 SURGEON: Meir Garrett MD PREOPERATIVE DIAGNOSES: 1. 1 cm bladder calculus. 2. Subcentimeter area of obvious tumor recurrence, present just above the left ureteral orifice. 3. Elevated bladder neck with known lower urinary tract symptoms. POSTOPERATIVE DIAGNOSES: 1. 1 cm bladder calculus. 2. Subcentimeter area of obvious tumor recurrence, present just above the left ureteral orifice. 3. Elevated bladder neck with known lower urinary tract symptoms. NAMES OF PROCEDURES: 1. Diagnostic cystoscopy. 2. Transurethral resection of bladder tumor - small. 3. Transurethral resection of prostate (mostly bladder neck). 4. Bladder stone extraction. ANESTHESIA: General. ESTIMATED BLOOD LOSS: Minimal. COMPLICATIONS: None. SPECIMENS: 1. Fragments of bladder calculus. 2. Prostate chips. 3. Small 3-mm sections of tissue resected from area of bladder tumor recurrence present just superior to the left ureteral orifice. DRAINS: A 22-Cay[place] Islander three-way Larkin catheter, connected to continuous bladder irrigation. Electronically Signed By: MEIR GARRETT MD 07/24/21 1816 PATIENT NAME: NATALYA FUNES OPERATIVE REPORT DATE OF : 43 REPORT #: [id number] PHYSICIAN: MEIR GARRETT MD PCP: IQRA SALGADO PA-C REPORT IS CONFIDENTIAL AND NOT TO BE RELEASED WITHOUT AUTHORIZATION [facility] [address] [place], [place] [address] Signed INDICATIONS FOR PROCEDURE: Mr. Funes is a very pleasant 75-year-old with a long-standing history of bladder cancer with history of prior recurrences. He is also well-known to me for lower urinary tract symptoms, for which he takes Flomax daily. He underwent a recent surveillance cystoscopy as part of his protocol for his known low-grade superficial bladder cancer. At the time of the cystoscopy, I did appreciate a carpet like area of tumor recurrence just superior to his left ureteral orifice. A previous tumor had been resected in this area. I did not appreciate any obvious tumor recurrence in the remainder of the bladder. However, also noted within the bladder, was a 1 cm crystalline-shaped bladder calculus. At the time of cystoscopy, I did experience a good deal of resistance on the part of the patient's bladder neck during evaluation. It was at that time that I noticed he had a significantly elevated bladder neck, however, there was only a small median lobe and mild amount of lateral lobe hypertrophy. Despite this, I felt that he would benefit from resection of his bladder neck in his median lobe of the prostate. After discussion of the risks and benefits of all 3 surgeries, the patient agreed to proceed. OPERATIVE FINDINGS: 1. On cystoscopy, I can again appreciate a red carpet like appearance lesion measuring approximately 1 cm or less just superior to the left ureteral orifice. I do not appreciate any other areas of obvious tumor recurrence. 2. Cystoscopy also revealed the presence of a crystalline shaped 1 cm bladder calculus. This was ultimately fragmented manually using an electrocautery loop and was extracted from the bladder using a Roz syringe. 3. The patient's small median lobe of the prostate, bladder neck and lateral lobes of the prostate were all resected using a 24-[place]ay[place] Islander bipolar loop in sequential fashion without difficulty. There was a small amount of prostate chips that I was able to send away for evaluation. Beyond that, the bipolar button was used to perform any additional resection of the area. 4. At the end of the procedure, a 22-[place]ay[place] Islander three-way Larkin catheter was inserted into the patient's bladder without difficulty and was connected to low flow continuous bladder irrigation. DESCRIPTION OF PROCEDURE: After informed consent was obtained, the patient was taken back to the operating room. He was transferred from the [facility] to the operating room table, where general anesthesia was induced. He was then placed in the dorsal lithotomy position and his genitalia was prepped and draped in a standard sterile fashion. Using a 30-degree lens on a 26-Cay[place] Islander introducer, a cystoscope was inserted into the patient's bladder under direct visualization. Prior to this, his urethral meatus and fossa navicularis were dilated using Isai sounds from 18-Cay[place] Islander to 30-Cay[place] Islander without difficulty. Once inside, I performed a thorough cystoscopy. Please see above findings. The visual obturator was Electronically Signed By: MEIR GARRETT MD 07/24/21 1816 PATIENT NAME: NATALYA FUNES OPERATIVE REPORT DATE OF : 43 REPORT #: [id number] PHYSICIAN: MEIR GARRETT MD PCP: IQRA SALGADO PA-C REPORT IS CONFIDENTIAL AND NOT TO BE RELEASED WITHOUT AUTHORIZATION [facility] [address] [place] [id number] Signed then switched out for the resectoscope. Firstly, I chose to resect the area of concern just superior to his left ureteral orifice. The area was resected using bipolar cautery and a total of 2 specimens were obtained from this area. The area of resection was then cauterized gently. I also cauterized around the area of resection to be sure to catch any residual microscopic areas of recurrence. Both bladder wall specimens were placed in a specimen cup and sent to pathology for evaluation. Once this area was adequately cauterized, I then turned my attention to the bladder calculus. I noticed that it was crystalline in nature and that it was likely very easy to break. I was able to successfully break it using manipulation with an electrocautery loop. I broke it into approximately 3 pieces. These pieces were then irrigated from the patient's bladder using a Roz syringe. The stones were placed in a separate specimen cup to be sent to the lab for stone analysis. I then turned my attention to the patient's prostatic urethra. I easily appreciated his small median lobe and elevated bladder neck. This was resected first using a bipolar loop without difficulty. I then resected the lateral lobes of the prostate as well as part of the anterior bladder neck. I was able to produce more than a few prostate chips to be sent to pathology for evaluation. I then switched from the bipolar loop to the bipolar button and continued my resection in all 4 quadrants of the prostatic urethra down to the level of the verumontanum. Again, there was not a significant amount of prostate tissue here, but I focused mostly on the bladder neck and median lobe of the prostate. The bipolar loop was also used to achieve hemostasis once most of the tissue had been resected. Once I was satisfied that hemostasis was achieved, I removed the resectoscope, leaving the sheath behind. Through the sheath, I passed a 22-[place]ay[place] Islander three-way Larkin catheter into the patient's bladder over a Sensor wire. The Larkin catheter passed easily and without difficulty. The Sensor wire was then removed fully intact. I then manually irrigated the Larkin catheter to assure good placement and to confirm there was no residual clots within the bladder. The catheter irrigated quite easily. The Larkin catheter was then connected to low-flow continuous bladder irrigation. The procedure was then terminated. The patient tolerated the procedure well without any complications. He will now be transferred to the postanesthesia care unit in stable condition. I discussed the details of today's procedure with the patient's and answered all of her questions. I have made it very clear to her that he will need to take it easy for the next 4 to 5 weeks. He will be returning to clinic this for a voiding trial. He will also see me in approximately 1 month for his first postoperative visit. At that time, we will discuss his pathology results as well. Meir Garrett MD Electronically Signed By: MEIR GARRETT MD 07/24/21 1816 PATIENT NAME: NATALYA FUNES OPERATIVE REPORT DATE OF : 43 REPORT #: [id number] PHYSICIAN: MEIR GARRETT MD PCP: IQRA SALGADO PA-C REPORT IS CONFIDENTIAL AND NOT TO BE RELEASED WITHOUT AUTHORIZATION [facility] [address] [place], [place] [address], [place] [address] Signed OSVALDO/GLORIA /[id number] Copies: ~ Electronically Signed By: MEIR GARRETT MD 07/24/21 1816 PATIENT NAME: NATALYA FUNES JODIE OPERATIVE REPORT DATE OF : 43 REPORT #: [id number] PHYSICIAN: MEIR GARRETT MD PCP: IQRA SALGADO PA-C REPORT IS CONFIDENTIAL AND NOT TO BE RELEASED WITHOUT AUTHORIZATION
--- NOTE | 2021-07-25 09:54 | PATH ---
[facility] [address] [place], [place] [address] Signed SPECIMEN(S): A MASS SUPERIOR TO LEFT URETERAL ORIFICE SPECIMEN(S): B PROSTATE CHIPS SPECIMEN SOURCE: A. MASS SUPERIOR TO LEFT URETERAL ORIFICE B. PROSTATE CHIPS CLINICAL HISTORY: Malignant neoplasm of overlapping sites of bladder; benign prostatic hyperplasia; bladder calculus. TURBT small, TURP. FINAL PATHOLOGIC DIAGNOSIS: A. Mass, superior to left ureteral orifice, biopsy: - Benign fibromuscular tissue with chronic inflammation and scattered eosinophils. - No urothelium is identified. B. Prostate chips, transurethral resection: - Fragments of benign prostatic tissue demonstrating features of glandular and stromal hyperplasia, consistent with features seen in benign prostatic hyperplasia. TWK:cml:C2NR MICROSCOPIC EXAMINATION: Histologic sections of all submitted blocks are examined by light microscopy. These findings, together with the gross examination, support the pathologic diagnosis. GROSS DESCRIPTION: Two specimens are received in two containers, labeled "FW." A. The specimen, labeled "FW, mass superior to left ureteral orifice," is received in formalin and consists of two pink-corado, soft tissue fragments that measure 0.2 cm in greatest dimension each. The specimen is entirely submitted in cassette (A1). B. The specimen, labeled "FW, prostate chips," is received in formalin and consists of irregular shaped, pink-corado, rubbery tissue fragments that in aggregate measure 3.3 x 2.5 x 0.6 cm. The specimen weighs 2 g. The specimen is entirely submitted in cassettes (B1-B2). JS (under the direct supervision of a pathologist) The Gross Description was prepared using a voice recognition system. The report was reviewed for accuracy; however, sound-alike word errors, addition and/or deletions may occur. If there is any PATIENT NAME: NATALYA CASTILLO PATHOLOGY DATE OF : 43 REPORT #: [id number] PHYSICIAN: JOEY ROJAS PCP: IQRA SALGADO PA-C REPORT IS CONFIDENTIAL AND NOT TO BE RELEASED WITHOUT AUTHORIZATION [facility] [address] [place] [address] Signed question about this report, please contact Client Services. PERFORMING LABORATORY: The technical component was performed by [facility], [address] [place] [id number] (Case Packer And Sealer: Minnie Maldonado MD; CLIA# [id number]). Professional interpretation was performed by [facility], [address] [address] (CLIA# [id number]). Diagnostician: Cecilio Patel MD Pathologist Electronically Signed 07/25/2021 Copies: ~ PATIENT NAME: NATALYA CASTILLO PATHOLOGY DATE OF : 43 REPORT #: [id number] PHYSICIAN: JOEY PATHOLOGY PCP: IQRA SALGADO PA-C REPORT IS CONFIDENTIAL AND NOT TO BE RELEASED WITHOUT AUTHORIZATION
== END 2021-07-23 16:35 | disposition home or self-care (01) ==
LOC: DS 07:20
PROVIDERS: ATTEND Urology
PROC: 0TBB8ZX Excision of Bladder, Via Natural or Artificial Opening Endoscopic, Diagnostic (ICD-10-PCS; 2021-07-23)
PROC: 0TCB8ZZ Extirpation of Matter from Bladder, Via Natural or Artificial Opening Endoscopic (ICD-10-PCS; principal; 2021-07-23 11:30)
PROC: 0VT08ZZ Resection of Prostate, Via Natural or Artificial Opening Endoscopic (ICD-10-PCS; 2021-07-23 11:30)
DX: N30.20 Other chronic cystitis without hematuria (principal); N40.1 Benign prostatic hyperplasia with lower urinary tract symptoms; N21.0 Calculus in bladder; Z80.42 Family history of malignant neoplasm of prostate; Z88.0 Allergy status to penicillin; Z88.2 Allergy status to sulfonamides; Z88.5 Allergy status to narcotic agent; Z88.8 Allergy status to other drugs, medicaments and biological substances
CPT/HCPCS: 00912; J0131; J0690; J1100; J2001; J2405; J2704; J3010; J7042; J7121

== ENCOUNTER 2022-05-02 08:35 | Emergency (ER) | payer OTHER, MEDICARE ==
[~2022-05-02] VITALS: Ht 185.4 cm; Wt 82.4 kg
[~2022-05-02 08:35] MED LIST changes: +PROTONIX20 MG PO
--- OUTSIDE RECORDS SUMMARY | 2022-05-02 08:38 | XMS ---
PreManage Notification: NATALYA CASTILLO Security Retail Event Assistant Events No recent Security Events currently on file CRITERIA MET - [facility] - 2 Visits in 30 Days - [facility] IQRA SALGADO Physician South Asian History Professor Current PHONE: Unknown Femi has no Care Guidelines for this patient. ETila VISIT COUNT (12 MO.) 2 [facility] TOTAL 2 NOTE: Visits indicate total known visits. ED/UCC VISIT TRACKING (12 MO.) 05/02/2022 08:36 [facility] TYPE: Emergency COMPLAINT: - FALL, L SIDE FACE INJURY 05/01/2022 16:43 [facility] TYPE: Emergency COMPLAINT: - EYE INJURY INPATIENT VISIT TRACKING (12 MO.) No inpatient visits to display in this time frame [id number]
== END 2022-05-02 09:18 | disposition home or self-care (01) ==
LOC: ED 08:35
DX: S00.83XA Contusion of other part of head, initial encounter (principal); W01.198A Fall on same level from slipping, tripping and stumbling with subsequent striking against other object, initial encounter; K21.9 Gastro-esophageal reflux disease without esophagitis; I10 Essential (primary) hypertension; Z88.0 Allergy status to penicillin; Z88.2 Allergy status to sulfonamides; Z88.5 Allergy status to narcotic agent; Z88.1 Allergy status to other antibiotic agents; Z88.6 Allergy status to analgesic agent; Z79.899 Other long term (current) drug therapy; Z79.82 Long term (current) use of aspirin
CPT/HCPCS: 99283

== ENCOUNTER 2022-07-08 05:35 | Day surgery (SDC) | payer MEDICARE, OTHER ==
[~2022-07-08] VITALS: Ht 185.4 cm; Wt 83.2 kg
[2022-07-08] MEDS ORDERED: FISH OIL 1,201200 MG PO (06:18)
--- NOTE | 2022-07-08 08:28 | NUR ---
PT IS ALERT, ORIENTED AND OUZINKIE. PT STATED HE IS HERE FOR THE FOURTH TIME FOR THIS PROCEDURE. SEEMS PREPARED, THANKED ME FOR COMING BY. GAVE BLESSING.
--- NOTE | 2022-07-08 08:48 | NUR ---
07/08/22 0848 Radha Gonzales 0842- PT ARRIVES TO PACU AWAKE AND TALKING. PT REPORTS NO PAIN OR NAUSEA. RESP EVEN AND UNLABORED. OXYGEN SAT 100% ON 10L VIA MASK. PT SITTING UP IN BED. HEAD OF BED LOWERED PER DR. GARRETT DUE TO THE MITOMYCIN BEING INSTILLED. 0846- OXYGEN TITRATED OFF.
--- NOTE | 2022-07-08 09:15 | NUR ---
PT BACK TO DS AWAKE AND ALERT DENIES PAIN OR NAUSEA. AT BEDSIDE VISITING WITH PT
--- NOTE | 2022-07-08 09:16 | NUR ---
PT TAKING SIPS OF WATER TOLERATES WELL. PT CAME TO DAY SURGERY IN RT LAT POSITION, REPOSITIONED HIM TO LT LAT AT 0915.
--- NOTE | 2022-07-08 09:51 | NUR ---
PT TURNED TO PRONE POSITION AT 934 THEN BACK TO SUPINE AT 0950, PT COMPLAINS OF PAIN TO LT LOWER QUADRANT 04/27 PAIN PERCOCET GIVEN
--- NOTE | 2022-07-08 10:01 | NUR ---
MITOMYCIN DRAINED THROUGH CATH. 400ML OF FLUID DRAINED, CATH DC'D PT TOLERATED WELL. PT REPORTS PAIN TO LT LOWER QUADRAND FEELS BETTER BUT NOT STILL PAINFULL.
--- NOTE | 2022-07-08 10:04 | NUR ---
PT EATING CRACKERS AND DRINKING WATER TOLERATES WELL.
--- NOTE | 2022-07-08 10:12 | NUR ---
PT REPORTS PAIN IS RADIATING TO LT FLANK NOW DOWN TO 03/27
--- NOTE | 2022-07-08 10:43 | NUR ---
PT REPORTS PAIN IS MUCH BETTER 5/10, HE AMBULATED TO THE BATHROOM AND WAS ABLE TO VOID 250ML OF BLOOD TINGED URIN. HE IS ASKING ABOUT GOING HOME, DISCHARGE INSTRUCTIONS GIVEN TO PT HE VOICED UNDERSTANDING.
--- NOTE | 2022-07-09 18:32 | OR ---
[facility] [address] [place], [place] [address] Signed DATE OF OPERATION: 07/08/2022 SURGEON: Meir Garrett MD PREOPERATIVE DIAGNOSES: 1. Evidence of tumor recurrence on recent cystoscopy in a patient with a history of superficial low-grade bladder cancer. 2. 0.5 cm flat plaque like bladder lesion present just superior and lateral to the left ureteral orifice. POSTOPERATIVE DIAGNOSES: 1. Evidence of tumor recurrence on recent cystoscopy in a patient with a history of superficial low-grade bladder cancer. 2. 0.5 cm flat plaque like bladder lesion present just superior and lateral to the left ureteral orifice. NAMES OF PROCEDURES: 1. Diagnostic cystoscopy. 2. Urethral dilation using Osbaldo sounds from 18-East Timorese to 30-East Timorese. 3. Transurethral resection of bladder tumor-small. 4. Intravesical instillation of mitomycin chemotherapy. ANESTHESIA: General. ESTIMATED BLOOD LOSS: Minimal. COMPLICATIONS: None. SPECIMENS: Resected 0.5 cm bladder lesion, sent to the lab for pathologic analysis. DRAINS: A 20-East [place]orese two-way Larkin catheter, capped and secured to the patient's abdomen. INDICATION FOR PROCEDURE: Mr. 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 He has undergone multiple Electronically Signed By: MEIR GARRETT MD 07/09/221831 PATIENT NAME: NATALYA FUNES OPERATIVE REPORT DATE OF : 43 REPORT #: [id number] PHYSICIAN: MEIR GARRETT MD PCP: IQRA SALGADO PA-C REPORT IS CONFIDENTIAL AND NOT TO BE RELEASED WITHOUT AUTHORIZATION [facility] [address] [place], [place] [address] Signed resections in the past for tumor recurrence. His most recent cystoscopy revealed evidence of early tumor recurrence in the form of a 0.5 cm plaque like lesion located just superior and lateral to his left ureteral orifice. After a discussion of the risks and benefits of the procedure, the patient elected to undergo another TURBT, small with intravesical instillation of mitomycin. Because he has experienced multiple tumor recurrences the plan is for him to undergo induction of BCG approximately two months after today's procedure. OPERATIVE FINDINGS: 1. The 26-East [place]orese sheath was not advancing easily through the patient's urethral meatus, so he was dilated from 18-East [place]orese to 30-East [place]orese with Itasca sounds without difficulty. 2. Diagnostic cystoscopy revealed an obvious area of tumor recurrence measuring around 5 mm, located just lateral and superior to the left ureteral orifice. There was another very tiny satellite lesion noticed just medial and inferior to the primary lesion. The satellite lesion was destroyed via electrocautery. The larger lesion was resected using bipolar electrocautery. The lesion was placed in a specimen cup to be sent to pathology for evaluation. 3. A thorough cystoscopy revealed no evidence of any other tumor recurrence located on the dome, posterior wall or right lateral wall of the bladder. 4. 40 mg in 20 mL of mitomycin was then instilled into the patient's bladder at the end of the procedure via a 20-[place]ore[place] two-way Larkin catheter. The catheter was then capped and secured to the patient's abdomen. This will remain in place for the next 80 minutes. DESCRIPTION OF PROCEDURE: After informed consent was obtained, the patient was taken back to the operating room. He was transferred from the [facility] to the operating room table, where general anesthesia was induced. He was placed in the dorsal lithotomy position and his genitalia prepped and draped in a standard sterile fashion. Using a 30-degree lens on a 22.5-East [place]orese introducer, a rigid cystoscope was inserted through his urethra into his bladder under direct visualization. Panendoscopic view of bladder was then obtained. Please see above findings. The rigid cystoscope was then removed and after I attempted to pass a 26-[place]se sheath, the patient's urethral meatus was dilated using Itasca sounds from 18-East [place]orese to 30-East Timorese without difficulty. I then was able to easily pass a 26-[place] sheath using a visual obturator into the patient's bladder. This obturator was switched out for a resectoscope with a 24-[place]orese bipolar loop. The satellite lesion was destroyed via electrocautery and then I turned my attention to the larger primary tumor recurrence. This was located just lateral and superior to the left ureteral orifice. This area was resected using a 24-[place]ore[place] loop without difficulty. It was resected into small pieces which were then placed in a specimen cup to be sent to pathology for evaluation. I then cauterized the biopsy bed as well as the edges of the prior lesion. I kept a close eye on the left ureteral orifice at all times and made sure that there Electronically Signed By: MEIR GARRETT MD 07/09/221831 PATIENT NAME: NATALYA FUNES OPERATIVE REPORT DATE OF : 43 REPORT #: [id number] PHYSICIAN: MEIR GARRETT MD PCP: IQRA SALGADO PA-C REPORT IS CONFIDENTIAL AND NOT TO BE RELEASED WITHOUT AUTHORIZATION [address] [address] Signed was no iatrogenic damage to that area. Once everything was complete, the left ureteral orifice was noted to be effluxing urine normally. Adequate hemostasis had been achieved. The patient's bladder was thoroughly irrigated using a Roz syringe and then the 26-East [place]orese sheath was removed. I then passed a 20-[place] two-way Larkin catheter into the patient's bladder without difficulty and filled the balloon with 10 mL of sterile water. 40 mg in 20 mL of mitomycin was then instilled into the patient's bladder via the indwelling catheter. The catheter was then capped and secured to the patient's abdomen. The procedure was then terminated. The patient tolerated the procedure well without any complication. He will now be transferred to the postanesthesia care unit in stable condition. DISPOSITION: I discussed the details of today's procedure with the patient's and answered all of her questions. She was notified that the patient did not require indwelling ureteral stent placement today. He will finish out his intravesical mitomycin chemotherapy and then the catheter will be removed today before he is discharged home. He will be sent home today with Cipro 500 mg p.o. b.i.d. for a total of 7 days along with oxycodone 5 mg one tablet p.o. q.6 hours p.r.n. pain, dispense #20. He will be scheduled return to clinic on August 13 for his first postoperative evaluation. At that time, we will get him scheduled to undergo BCG induction, which is a total of six intravesical BCG treatments to prevent future recurrence of his urothelial carcinoma. MD OSVALDO Lyons/GLORIA /[id number] Copies: ~ Electronically Signed By: MEIR GARRETT MD 07/09/221831 PATIENT NAME: NATALYA FUNES OPERATIVE REPORT DATE OF : 43 REPORT #: [id number] PHYSICIAN: MEIR GARRETT MD PCP: IQRA SALGADO PA-C REPORT IS CONFIDENTIAL AND NOT TO BE RELEASED WITHOUT AUTHORIZATION
--- NOTE | 2022-07-09 20:37 | EKG ---
[facility] [address] [place] [address] Signed Normal sinus rhythm Left axis deviation Minimal voltage criteria for LVH, may be normal variant Possible Anterior infarct (cited on or before 18-JUL-2021) Abnormal ECG When compared with ECG of 18-JUL-2021 08:29, Previous ECG has undetermined rhythm, needs review Confirmed by Leo Neal MD () on 07/09/2022 8:37:37 PM Electronically Signed By: LEO NEAL MD 07/09/222036 PATIENT NAME: NATALYA CASTILLO Electrocardiogram DATE OF : 43 PHYSICIAN: LEO NEAL MD REPORT #: [id number] REPORT IS CONFIDENTIAL AND NOT TO BE RELEASED WITHOUT AUTHORIZATION
--- NOTE | 2022-07-15 17:05 | PATH ---
[facility] [address] [facility] [place] [address] Signed SPECIMEN(S): A BLADDER TUMOR SPECIMEN SOURCE: A. BLADDER TUMOR CLINICAL HISTORY: Bladder lesion; bladder CA. FINAL PATHOLOGIC DIAGNOSIS: Bladder tumor: - Low-grade papillary urothelial carcinoma. - Negative for stromal invasion. - Negative for muscularis propria invasion. COMMENT: As part of [facility]' Quality Improvement Program, this case was reviewed by another member of our pathology staff. JVR:hardik:C1NR MICROSCOPIC EXAMINATION: Histologic sections of all submitted blocks are examined by light microscopy. These findings, together with the gross examination, support the pathologic diagnosis. GROSS DESCRIPTION: The specimen, labeled "FW, bladder tumor," is received in formalin and consists of two pink-corado soft tissue fragments that measure 0.3 cm in greatest dimension each. Specimen is entirely submitted in cassette (A1). JS (under the direct supervision of a pathologist) The Gross Description was prepared using a voice recognition system. The report was reviewed for accuracy; however, sound-alike word errors, addition and/or deletions may occur. If there is any question about this report, please contact Client Services. PERFORMING LABORATORY: The technical component was performed by [facility], [address] [place] [id number] (CLIA# [id number]). Professional interpretation was performed by [facility] - [facility], [address] [place] [address], [place] [address] (CLIA#: [id number]). PATIENT NAME: WICKLANDER,NATALYA JODIE PATHOLOGY DATE OF : 43 REPORT #: [id number] PHYSICIAN: JOEY ROJAS PCP: IQRA SALGADO PA-C REPORT IS CONFIDENTIAL AND NOT TO BE RELEASED WITHOUT AUTHORIZATION [address] [place], [place] [address] Signed Diagnostician: Dm Heard MD Pathologist Electronically Signed 07/15/2022 Copies: ~ PATIENT NAME: NATALYA CASTILLO PATHOLOGY DATE OF : 43 REPORT #: [id number] PHYSICIAN: JOEY ROJAS PCP: IQRA SALGADO PA-C REPORT IS CONFIDENTIAL AND NOT TO BE RELEASED WITHOUT AUTHORIZATION
== END 2022-07-08 10:55 | disposition home or self-care (01) ==
LOC: DS 05:35
PROVIDERS: ATTEND Urology
PROC: 0TBB8ZZ Excision of Bladder, Via Natural or Artificial Opening Endoscopic (ICD-10-PCS; principal; 2022-07-08 07:00)
DX: C67.8 Malignant neoplasm of overlapping sites of bladder (principal); N32.9 Bladder disorder, unspecified; N40.1 Benign prostatic hyperplasia with lower urinary tract symptoms; K21.9 Gastro-esophageal reflux disease without esophagitis; Z85.51 Personal history of malignant neoplasm of bladder; Z88.5 Allergy status to narcotic agent; Z88.8 Allergy status to other drugs, medicaments and biological substances; Z88.0 Allergy status to penicillin; Z88.2 Allergy status to sulfonamides
CPT/HCPCS: 00912; 88305; 93005; 93010; C1769; J0690; J1100; J1160; J1885; J2250; J2405; J2704; J2765; J3010; J7121; J9280

== ENCOUNTER 2022-07-10 09:43 | Emergency (ER) | payer MEDICARE, OTHER ==
[~2022-07-10] VITALS: Ht 185.4 cm; Wt 83.0 kg
[~2022-07-10 09:43] MED LIST changes: +FISH OIL 1,201200 MG PO
[2022-07-10] MEDS ORDERED: CIPROFLOXACIN500 MG PO (09:50)
[2022-07-10] MEDS ORDERED: ONDANSETRON ODT4 MG PO (13:04)
[2022-07-10] MEDS ORDERED: OXAYDO7.5 MG PO (13:04)
== END 2022-07-10 14:05 | disposition home or self-care (01) ==
LOC: ED 09:43
DX: G89.18 Other acute postprocedural pain (principal); R10.32 Left lower quadrant pain; I10 Essential (primary) hypertension; K21.9 Gastro-esophageal reflux disease without esophagitis; Z88.0 Allergy status to penicillin; Z88.2 Allergy status to sulfonamides; Z88.5 Allergy status to narcotic agent; Z88.6 Allergy status to analgesic agent; Z88.8 Allergy status to other drugs, medicaments and biological substances; Z79.899 Other long term (current) drug therapy
CPT/HCPCS: 36415; 74177; 80053; 81001; 85025; 87088; 96375; 96376; 99284-25; C9803; J0696; J1170; J1200; J2405; J7030; Q9967; U0003

== ENCOUNTER 2022-07-17 15:34 | Emergency (ER) | payer MEDICARE, OTHER ==
[~2022-07-17] VITALS: Ht 185.4 cm; Wt 83.0 kg
[~2022-07-17 15:34] MED LIST changes: +ONDANSETRON ODT4 MG PO; +OXAYDO7.5 MG PO
--- OUTSIDE RECORDS SUMMARY | 2022-07-17 15:37 | XMS ---
PreManage Notification: NATALYA CASTILLO Security Oxide Furnace Tender Events No recent Security Events currently on file CRITERIA MET - [facility] - [facility] Physician Machine Operator Replanter Current PHONE: Unknown Femi has no Care Guidelines for this patient. ETila VISIT COUNT (12 MO.) 4 [facility] TOTAL 4 NOTE: Visits indicate total known visits. ED/UCC VISIT TRACKING (12 MO.) 07/17/2022 15:35 [facility] TYPE: Emergency COMPLAINT: - URINE PROBLEM 07/10/2022 09:44 [facility] TYPE: Emergency COMPLAINT: - POST SURGICAL PAIN DIAGNOSES: - Allergy status to narcotic agent - Other acute postprocedural pain - Allergy status to penicillin - Essential (primary) hypertension - Allergy status to other drugs, medicaments and biological substances - Allergy status to analgesic agent - Left lower quadrant pain - Gastro-esophageal reflux disease without esophagitis - Other penitentiary (current) drug therapy - Allergy status to sulfonamides 05/02/2022 08:36 [facility] TYPE: Emergency COMPLAINT: - FALL, L SIDE FACE INJURY DIAGNOSES: - Allergy status to other antibiotic agents - Contusion of other part of head, initial encounter - Allergy status to analgesic agent - Allergy status to narcotic agent - Gastro-esophageal reflux disease without esophagitis - Essential (primary) hypertension - medical terminologist (current) use of aspirin - Allergy status to penicillin - Allergy status to sulfonamides - Fall on same level from slipping, tripping and stumbling with subsequent striking against other object, initial encounter - Other long term care phlebotomist (current) drug therapy 05/01/2022 16:43 [facility] TYPE: Emergency COMPLAINT: - EYE INJURY INPATIENT VISIT TRACKING (12 MO.) No inpatient visits to display in this time frame [email or web address]
[2022-07-17] MEDS ORDERED: PERCOCET 7.5-31 EACH PO (23:21)
[2022-07-18] MEDS ORDERED: OXYCODONE HCL10 MG PO (10:00)
== END 2022-07-17 23:37 | disposition home or self-care (01) ==
LOC: ED 15:34
DX: N39.498 Other specified urinary incontinence (principal); K21.9 Gastro-esophageal reflux disease without esophagitis; I10 Essential (primary) hypertension; Z79.899 Other long term (current) drug therapy; Z88.0 Allergy status to penicillin; Z88.2 Allergy status to sulfonamides; Z88.5 Allergy status to narcotic agent; Z88.8 Allergy status to other drugs, medicaments and biological substances; Z88.6 Allergy status to analgesic agent; Z79.82 Long term (current) use of aspirin
CPT/HCPCS: 36415; 51798; 74176; 74177; 80053; 81001; 85025; 99284-25; J1170; J7030; Q9967

== ENCOUNTER 2022-07-18 09:36 | Day surgery (SDC) | payer MEDICARE, OTHER ==
[~2022-07-18] VITALS: Ht 185.4 cm; Wt 83.2 kg
--- NOTE | ~2022-07-18 | OR ---
[facility] [address] [place], [place] [address] Draft DATE OF OPERATION: 07/18/2022 SURGEON: Meir Garrett MD PREOPERATIVE DIAGNOSES: 1. 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 2. Status post recent transurethral resection of bladder tumor located superior to the left ureteral orifice. 3. 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 POSTOPERATIVE DIAGNOSES: 1. 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 2. Status post recent transurethral resection of bladder tumor located superior to the left ureteral orifice. 3. 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 NAMES OF PROCEDURES: 1. Diagnostic cystoscopy with left retrograde pyelogram. 2. Transurethral resection of left ureteral orifice and associated periureteral tissue. 3. Insertion of an indwelling 6 x 28 cm double-J ureteral stent into the left collecting system. ANESTHESIA: General. ESTIMATED BLOOD LOSS: Minimal. COMPLICATIONS: None. SPECIMENS: Left ureteral orifice with periureteral tissue proximal to the patient's recent bladder tumor sent to pathology for evaluation. DRAINS: A 6 x 28 cm double-J ureteral stent inserted into the left collecting system. PATIENT NAME: NATALYA FUNES OPERATIVE REPORT DATE OF : 43 REPORT #: [id number] PHYSICIAN: MEIR GARRETT MD PCP: IQRA SALGADO PA-C REPORT IS CONFIDENTIAL AND NOT TO BE RELEASED WITHOUT AUTHORIZATION [facility] [address] [place], [place] [address] Draft INDICATIONS FOR PROCEDURE: Mr. Funes is a very pleasant 76-year-old gentleman with a history of recurrent low-grade urothelial carcinoma of the bladder, who is well-known to me. He recently underwent cystoscopy, which revealed an obvious area of tumor recurrence located just superior and lateral to his left ureteral orifice. Around 10 days ago, he underwent uneventful transurethral resection of small bladder tumor with intravesical instillation of mitomycin. Approximately a couple days later, the patient began to experience left lower quadrant and hip pain. He had no issues with fevers, chills, or gross hematuria. He was seen in the emergency department a couple of times before he was diagnosed with a left perinephric urinoma via recent CT scan. I suspect that resection of the recent tumor just superior to the left ureteral orifice resulted in complete or partial obstruction of the left ureter and left kidney. This resulted in backflow of fluid into the left kidney with resulting rupture of the renal calyx. The kidney then developed perinephric fluid as well as development of a perinephric and psoas urinoma. Since surgery, the patient has not experienced any fevers or chills and has no abnormalities in his blood work. The patient presents today to undergo definitive management of his left ureteral obstruction in the form of resection of the transmural ureter with stent placement. OPERATIVE FINDINGS: 1. On cystoscopy, there is a recently resected tumor that is beginning at its early phases of healing present just superior and lateral to the left ureteral orifice. This measures around 1 cm in size. There are no other obvious lesions present within the bladder. 2. Left retrograde pyelogram revealed active obstruction of the left distal ureter. It was at this time that I have made the decision to transurethrally resect the transmural portion of the left distal ureter. 3. The left distal ureter was resected transurethrally. All the tissue removed from the left ureteral orifice and the tissue around it was sent to pathology for evaluation. I was able to immediately see the distal opening of the left ureter after resection. This was stented using a 6 x 28 cm double-J ureteral stent into the left ureter. DESCRIPTION OF PROCEDURE: After informed consent was obtained, the patient was taken back to the operating room. He was transferred from the [facility] to the operating room table, where general anesthesia was induced. He was placed in the dorsal lithotomy position and his genitalia was prepped and draped in the standard sterile fashion. Using a 30-degree lens on a 22.5-Swiss introducer, a rigid cystoscope was inserted through the urethra into his bladder under direct visualization. Panendoscopic views of bladder were then obtained. Please see above findings. Attention was turned to the left ureteral orifice. I advanced a cone-tipped catheter to the level of the left ureteral orifice and performed a left retrograde pyelogram. Please see above findings. At this time, I made the PATIENT NAME: NATALYA FUNES OPERATIVE REPORT DATE OF : 43 REPORT #: [id number] PHYSICIAN: MEIR GARRETT MD PCP: IQRA SALGAOD PA-C REPORT IS CONFIDENTIAL AND NOT TO BE RELEASED WITHOUT AUTHORIZATION [address] [address] Draft decision to transurethrally resect the transmural portion of the distal left ureter. I removed the cystoscope and passed a 26-Swiss sheath using a visual obturator into the patient's bladder. The visual obturator was then switched out for a 24-Swiss loop with the resectoscope. I then resected the left ureteral orifice and surrounding tissues. These fragments of tissue were sent to pathology for evaluation for any potential residual urothelial cell carcinoma. After about 4 or 5 swipes around the left ureteral orifice, I was immediately able to appreciate the opening of the neoureteral orifice. I removed the resectoscope and reinserted the 30-degree lens on a 22.5-Swiss introducer. I first cannulated the neoureteral orifice using a 0.035 Sensor wire into the left collecting system. Over the wire, I passed a 6 x 28 cm double-J ureteral stent into the left collecting system under direct visualization without difficulty. I pulled the Sensor wire and could appreciate an adequate coil within the left renal pelvis. There was also an adequate coil seen on cystoscopy. I removed the standard cystoscope and then reinserted the 26-Swiss sheath using a visual obturator. I switched out the visual obturator for the resectoscope and proceeded to cauterize all of the recently resected tissue around the ureteral orifice. This was to achieve and maintain hemostasis. I did not cauterize near the neoureteral orifice itself. Once I was satisfied that hemostasis had been achieved, I removed the resectoscope. All of the chips of tissue resected from the area were irrigated from the patient's bladder and placed in a specimen cup to be sent to pathology for evaluation. I emptied the patient's bladder and then removed the cystoscope. The procedure was then terminated. The patient tolerated the procedure well without any complications. He will now be transferred to the postanesthesia care unit in stable condition. DISPOSITION: I discussed the details of today's procedure with the patient's and answered all of her questions. He will need to keep his indwelling ureteral stent in place for at least 2-3 weeks to allow proper healing of his new left ureteral orifice. I explained this concept to the patient's in detail. He has been scheduled to return to clinic in late July to undergo cystoscopy with left ureteral stent extraction. He will be sent home today with additional oxycodone 10 mg one tablet p.o. q.6 hours p.r.n. pain, dispense #30, along with oral antibiotics, Levaquin 500 mg p.o. daily for a total of 10 days. Meir Garrett MD AR/MODL /[id number] PATIENT NAME: NATALYA FUNES OPERATIVE REPORT DATE OF : 43 REPORT #: [id number] PHYSICIAN: MERI GARRETT MD PCP: IQRA SALGADO PA-C REPORT IS CONFIDENTIAL AND NOT TO BE RELEASED WITHOUT AUTHORIZATION [address] [place], [place] [address] Draft Copies: ~ PATIENT NAME: NATALYA FUNES OPERATIVE REPORT DATE OF : 43 REPORT #: [id number] PHYSICIAN: MEIR GARRETT MD PCP: IQRA SALGADO PA-C REPORT IS CONFIDENTIAL AND NOT TO BE RELEASED WITHOUT AUTHORIZATION
[~2022-07-18 09:36] MED LIST changes: +PERCOCET 7.5-31 EACH PO
[2022-07-18] MEDS ORDERED: OXYCODONE HCL10 MG PO (10:00)
--- NOTE | 2022-07-18 12:15 | NUR ---
07/18/22 1215 Radha Gonzales 1202- PT ARRIVES TO PACU NONAROUSABLE TO STIMULI WITH AN OPA IN PLACE. RESP EVEN AND UNLABORED. OXYGEN SAT HIGH 90'S TO 100% ON 6L VIA MASK. 1206- PT NEEDING A JAW LIFT TO MAINTAIN PATENT AIRWAY. 1213- PT AROUSING TO STIMULI. PT ABLE TO FOLLOW INSTRUCTS TO OPEN HIS MOUTH. OPA REMOVED. OXYGEN MASK REPLACED AT 6L. OXYGEN SAT 100% ON THIS.
--- NOTE | 2022-07-18 13:14 | NUR ---
1305 WATER AND JELLO GIVEN. RATES PAIN AT 9/10. EATING PUDDING TOO.
--- NOTE | 2022-07-18 14:10 | NUR ---
HAS VOIDED 175MLS DARK YELLOW URINE. STATES HES READY TO GO HOME.
== END 2022-07-18 14:15 | disposition home or self-care (01) ==
LOC: DS 09:36
PROVIDERS: ATTEND Urology
PROC: 0T778DZ Dilation of Left Ureter with Intraluminal Device, Via Natural or Artificial Opening Endoscopic (ICD-10-PCS; principal; 2022-07-18 10:30)
DX: N28.89 Other specified disorders of kidney and ureter (principal); C67.2 Malignant neoplasm of lateral wall of bladder; K21.9 Gastro-esophageal reflux disease without esophagitis; Z88.2 Allergy status to sulfonamides; Z88.0 Allergy status to penicillin; Z88.5 Allergy status to narcotic agent
CPT/HCPCS: 36415; 74420; 80053; 85025; C1769; C2617; J0131; J0690; J1100; J2001; J2405; J2704; J3010; J7121; Q9967

== ENCOUNTER 2022-08-02 07:01 | Emergency (ER) | payer MEDICARE, OTHER ==
[~2022-08-02] VITALS: Ht 185.4 cm; Wt 78.0 kg
[~2022-08-02 07:01] MED LIST changes: +OXYCODONE HCL10 MG PO
--- OUTSIDE RECORDS SUMMARY | 2022-08-02 07:04 | XMS ---
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 EGeovani. VISIT COUNT ([address] [facility] TOTAL 6 NOTE: Visits indicate total known visits. ED/UCC VISIT TRACKING (12 MO.) 08/02/2022 07:02 [facility] TYPE: Emergency COMPLAINT: - BLADDER PROBLEM 08/01/2022 13:40 [facility] TYPE: Emergency COMPLAINT: - BLADDER PROBLEMS 07/17/2022 15:35 [facility] TYPE: Emergency COMPLAINT: - URINE PROBLEM DIAGNOSES: - Allergy status to narcotic agent - roasterman (current) use of aspirin - Allergy status to other drugs, medicaments and biological substances - Allergy status to analgesic agent - Pain in left hip - Allergy status to sulfonamides - Other specified urinary incontinence - Essential (primary) hypertension - Allergy status to penicillin - Other residential (current) drug therapy - Gastro-esophageal reflux disease without esophagitis 07/10/2022 09:44 [facility] [place] TYPE: Emergency COMPLAINT: - POST SURGICAL PAIN DIAGNOSES: - Allergy status to analgesic agent - Left lower quadrant pain - Allergy status to penicillin - Gastro-esophageal reflux disease without esophagitis - Allergy status to other drugs, medicaments and biological substances - Contact with and (suspected) exposure to COVID-19 - Allergy status to narcotic agent - Other acute postprocedural pain - Other residential (current) drug therapy - Essential (primary) hypertension - Allergy status to sulfonamides 05/02/2022 08:36 [facility] [place] TYPE: Emergency COMPLAINT: - FALL, L SIDE FACE INJURY DIAGNOSES: - Essential (primary) hypertension - roasterman (current) use of aspirin - Allergy status to penicillin - Allergy status to sulfonamides - Fall on same level from slipping, tripping and stumbling with subsequent striking against other object, initial encounter - Other residential (current) drug therapy - Allergy status to other antibiotic agents - Contusion of other part of head, initial encounter - Allergy status to analgesic agent - Allergy status to narcotic agent - Gastro-esophageal reflux disease without esophagitis 05/01/2022 16:43 [facility] TYPE: Emergency COMPLAINT: - EYE INJURY INPATIENT VISIT TRACKING (12 MO.) No inpatient visits to display in this time frame [email or web address]
[2022-08-02] MEDS ORDERED: LEVOFLOXACIN500 MG PO (10:17)
[2022-08-02] MEDS ORDERED: OXYCODONE HCL5 MG PO (10:17)
== END 2022-08-02 10:30 | disposition home or self-care (01) ==
LOC: ED 07:01
DX: T83.84XA Pain due to genitourinary prosthetic devices, implants and grafts, initial encounter (principal); I10 Essential (primary) hypertension; K21.9 Gastro-esophageal reflux disease without esophagitis; Z88.0 Allergy status to penicillin; Z88.2 Allergy status to sulfonamides; Z88.5 Allergy status to narcotic agent; Z88.6 Allergy status to analgesic agent; Z88.8 Allergy status to other drugs, medicaments and biological substances; Z79.899 Other long term (current) drug therapy; Z79.82 Long term (current) use of aspirin; Y83.1 Surgical operation with implant of artificial internal device as the cause of abnormal reaction of the patient, or of later complication, without mention of misadventure at the time of the procedure
CPT/HCPCS: 36415; 74177; 80053; 81001; 83690; 85025; 87088; 99284-25; Q9967

== ENCOUNTER 2023-07-28 05:30 | Day surgery (SDC) | payer MEDICARE, OTHER ==
[2023-07-21 10:43] VITALS: BP 151/88
--- NOTE | 2023-07-23 14:51 | EKG ---
[facility] [address] [facility] [place] [address] Signed Poor data quality, interpretation may be adversely affected Normal sinus rhythm Left axis deviation Voltage criteria for left ventricular hypertrophy Abnormal ECG When compared with ECG of 08-JUL-2022 06:02, No significant change was found Confirmed by JESS HANNON MD ([id number]) on 07/23/2023 2:51:25 PM Electronically Signed By: JESS HANNON 07/23/23 1451 PATIENT NAME: NATALYA CASTILLO Electrocardiogram DATE OF : 43 PHYSICIAN: JESS HANNON REPORT #: [id number] REPORT IS CONFIDENTIAL AND NOT TO BE RELEASED WITHOUT AUTHORIZATION
[~2023-07-28] VITALS: Ht 185.4 cm; Wt 84.5 kg
[~2023-07-28 05:30] MED LIST changes: +LEVOFLOXACIN500 MG PO; +OXYCODONE HCL5 MG PO
[2023-07-28 06:08] VITALS: BP 157/83
[2023-07-28] MEDS ORDERED: TYLENOL325 MG PO (06:13)
[2023-07-28] MEDS ORDERED: DOXYCYCLINE HY100 MG PO (06:14)
--- NOTE | 2023-07-28 09:37 | NUR ---
07/28/23 0937 Paula Pan 0922- PT ARRIVES TO PACU, RESTING BUT REACTIVE, SEMI KELLOGG POSITION. LR INFUSING TO LFA IV, ABD SOFT NON DISTENDED. NO DRAINAGE FROM URETHRA. 0930- PT DENIES PAIN OR NAUSEA. PT ALERT, SLIGHTLY DROWSY. NO SIGNS OF DISTRESS. ANSWERS QUESTIONS APPROPRIATELY. 0935- PT SITTING UP, DRINKING WATER. TOLERATING WELL.
[2023-07-28 09:48] VITALS: BP 148/76
--- NOTE | 2023-07-28 10:42 | NUR ---
voids 200mls bright yellow urine per urinal. requests to go home.
[2023-07-28 10:52] VITALS: BP 144/89
--- NOTE | 2023-07-28 10:58 | NUR ---
1047: PT AWAKE AND ALERT WATCHING TV IN STRETCHER. EAGER TO DC. VSS, RESP EVEN AND UNLABORED. DENIES PAIN AND NAUSEA. LYLE PO INTAKE. SL DC'D WITH CATH TIP INTACT AND PRESSURE APPLIED TO SITE, WNL. TO DRESS INDEPENDENTLY FOR DC
--- NOTE | 2023-07-28 11:36 | NUR ---
1100: DC INSTRUCTIONS PROVIDED AND DISCUSSED ORDERED. PT VOICES UNDERSTANDING AND DENIES QUESTIONS AND CONCERNS. 1105: WHEELED OFF OF UNIT BY THIS RN. TRANSFERS INTO VEHICLE INDEPENDENTLY AND APPROPRIATELY. NO PHYSICAL S/S OF DISTRESS AT THIS TIME
--- NOTE | 2023-07-28 13:00 | OR ---
[facility] [address] [place], [place] [address] Signed DATE OF OPERATION: 07/28/2023 SURGEON: Meir Garrett MD PREOPERATIVE DIAGNOSES: 1. Bladder wall calcifications, status post prior bladder biopsy. 2. History of high-grade superficial bladder cancer with no new evidence of tumor recurrence. PREOPERATIVE DIAGNOSES: 1. Bladder wall calcifications, status post prior bladder biopsy. 2. History of high-grade superficial bladder cancer with no new evidence of tumor recurrence. 3. Diminutive left ureteral orifice, status post prior transurethral resection of left ureteral orifice for treatment of trigonal high-grade superficial bladder cancer. NAMES OF PROCEDURES: 1. Diagnostic cystoscopy with right retrograde pyelogram. 2. Attempted left retrograde pyelogram. 3. Extraction of multiple bladder wall calculi, with a total stone burden of 1.5 cm. 4. Bladder irrigation with Bovie cautery of areas of the bladder wall where calculi were present. ANESTHESIA: General. ESTIMATED BLOOD LOSS: Minimal. COMPLICATIONS: None. DRAINS: None. SPECIMENS: None. INDICATIONS FOR PROCEDURE: Jaden is a very pleasant 77-year-old gentleman, who is well-known to me. He has a Electronically Signed By: MEIR GARRETT MD 07/28/23 [facility] PATIENT NAME: JADEN CASTILLO OPERATIVE REPORT DATE OF : 43 REPORT #: [id number] PHYSICIAN: MEIR GARRETT MD PCP: ALEXANDER OWUSU MD REPORT IS CONFIDENTIAL AND NOT TO BE RELEASED WITHOUT AUTHORIZATION [facility] [address] [place], [place] [address] Signed history of superficial high-grade bladder cancer and has undergone multiple bladder biopsies and TURs in the past. He has had a couple of transurethral resections at and near the left ureteral orifice, which did require resection of the entire left ureteral orifice in order to obtain the entire bladder wall specimen. On his most recent cystoscopy in late May, he was found to have multiple small calculi associated with prior areas of biopsy. These calculi were stuck to the wall of the bladder and could not be irrigated out with the patient awake. I also noted at that time that he did have a diminutive left ureteral orifice, so decision was also made to undergo bilateral retrograde pyelogram. He also has a history of recurrent Staph epi UTIs and I suspect the bladder wall calculi are definite nidus for infection. After explaining the benefits of today's procedure and the risks, the patient has agreed to proceed. OPERATIVE FINDINGS: 1. On cystoscopy, there was no evidence of any recurrence of the patient's known bladder cancer. He does have two well-defined areas of calculi that are adherent to the wall of the bladder. There appeared to be two prior biopsy sites. One is located on the posterior wall of the bladder and measures approximately 1 cm in size. The other area is just superior to the left ureteral orifice and measures around 3 mm in size. The stones were extracted using biopsy forceps without difficulty. This did cause some minor hemorrhage in these areas, which was managed with Bovie electrocautery. 2. Right retrograde pyelogram was performed, which revealed mild to moderate dilation of the right renal pelvis as well as evidence of some tightness at the level of the right ureteropelvic junction. There were no suspicious filling defects or masses within the right ureter. The left ureteral orifice is noted to be extremely diminutive and only allowing the 0.035 Sensor wire. I was able to pass the wire up into what I believe was the kidney, however, I was unable to perform a retrograde pyelogram to confirm this. I tried multiple ureteral catheters and cone-tipped catheters in order to get a good retrograde pyelogram on the left, however, all of my catheters are too large for the left ureteral orifice. 3. The patient's bladder was thoroughly irrigated and I extracted all of the calculus material that had been removed from the bladder wall. DESCRIPTION OF PROCEDURE: After informed consent was obtained, the patient was taken back to the operating room. He was transferred from the [facility] to the operating room table, where general anesthesia was induced. He was placed in the dorsal lithotomy position and his genitalia were prepped and draped in standard sterile fashion. Using a 30-degree lens on a 22.5-Cambodian introducer, rigid cystoscope was inserted through his urethra and into his bladder under direct visualization. Panendoscopic views of the bladder were then obtained. Please see above findings. I turned my attention to the multiple small calculi here and to the bladder wall. I advanced a cold cup biopsy forcep and plucked these calculi directly from the posterior wall of the bladder and from the area just superior to the left Electronically Signed By: MEIR GARRETT MD 07/28/23 [facility] PATIENT NAME: JADEN CASTILLO OPERATIVE REPORT DATE OF : 43 REPORT #: [id number] PHYSICIAN: MEIR GARRETT MD PCP: ALEXANDER OWUSU MD REPORT IS CONFIDENTIAL AND NOT TO BE RELEASED WITHOUT AUTHORIZATION [address] [address] Signed ureteral orifice. I was able to get all of the calcifications from the bladder wall and this was performed without difficulty. I then used a Bugbee cautery for hemostasis in these areas. I then turned my attention to the right ureteral orifice, which was easily found. Right retrograde correction I advanced a cone-tipped catheter to the level of the right ureteral orifice and a right retrograde pyelogram was performed. Please see above findings. With the use of fluorescence, I was able to definitively find the left ureteral orifice. It was quite diminutive in nature and only admitted a 0.035 Sensor wire. I tried multiple cone sized cone-tip catheters and open-end ureteral catheters and none of them were small enough to fit into the left distal ureter in order to perform a left retrograde pyelogram. I decided at this time to terminate this portion of procedure and order a CT IVP instead. The patient's bladder was then thoroughly irrigated and all the calculus material was extracted from the bladder using a Roz syringe. In all, approximately 1.5 cm of calculi removed from the bladder. The patient's bladder was then drained and the cystoscope was removed. The procedure was then terminated. The patient tolerated the procedure well without any complication. He will now be transferred to the postanesthesia care unit in stable condition. DISPOSITION: I discussed the details of today's procedure with the patient's , Alexandra and answered all of her questions. I told her that his left ureter is draining, however, it is quite diminutive. I would like for him to undergo a CT IVP in order to evaluate the precise level of drainage from the left collecting system. She understands that she will hear from [facility] sometime within the next couple of days to order the CT IVP for the patient. If the results of the CT IVP are concerning or abnormal, they will be notified of the results via telephone. Otherwise, the patient will return to clinic in approximately five weeks with a urine check for his postoperative visit and to discuss the results of his CT IVP. Otherwise, he will be sent home today with oxycodone 5 mg one tablet p.o. q.6 hours p.r.n. pain, dispense #10. He would also need to finish out his existing prescription for doxycycline. Meir Garrett MD AR/MODL /[id number] Electronically Signed By: MEIR GARRETT MD 07/28/23 1300 PATIENT NAME: JADEN CASTILLO OPERATIVE REPORT DATE OF : 43 REPORT #: [id number] PHYSICIAN: MEIR GARRETT MD PCP: ALEXANDER OWUSU MD REPORT IS CONFIDENTIAL AND NOT TO BE RELEASED WITHOUT AUTHORIZATION [facility] [address] [place] [address] [place], [place] [address] Signed Copies: ~ Electronically Signed By: MEIR GARRETT MD 07/28/23 1300 PATIENT NAME: JADEN CASTILLO OPERATIVE REPORT DATE OF : 43 REPORT #: [id number] PHYSICIAN: MEIR GARRETT MD PCP: ALEXANDER OWUSU MD REPORT IS CONFIDENTIAL AND NOT TO BE RELEASED WITHOUT AUTHORIZATION
== END 2023-07-28 11:05 | disposition home or self-care (01) ==
LOC: DS 05:30
PROVIDERS: ATTEND Urology
PROC: 0TCB8ZZ Extirpation of Matter from Bladder, Via Natural or Artificial Opening Endoscopic (ICD-10-PCS; 2023-07-28)
PROC: 0TBB8ZX Excision of Bladder, Via Natural or Artificial Opening Endoscopic, Diagnostic (ICD-10-PCS; principal; 2023-07-28 07:30)
PROC: BT1FZZZ Fluoroscopy of Left Kidney, Ureter and Bladder (ICD-10-PCS; 2023-07-28 07:30)
DX: N21.0 Calculus in bladder (principal); N52.9 Male erectile dysfunction, unspecified; N40.1 Benign prostatic hyperplasia with lower urinary tract symptoms; K21.9 Gastro-esophageal reflux disease without esophagitis; R51.9 Headache, unspecified; N19 Unspecified kidney failure; G89.29 Other chronic pain; M54.9 Dorsalgia, unspecified; Z79.899 Other long term (current) drug therapy; Z85.51 Personal history of malignant neoplasm of bladder; Z88.5 Allergy status to narcotic agent; Z88.2 Allergy status to sulfonamides; Z88.0 Allergy status to penicillin
CPT/HCPCS: 00910; 74420; C1769; J0690; J1100; J1580; J2001; J2405; J2704; J3010; J7060; J7121; Q9967

== ENCOUNTER → 2024-05-27 | Day surgery (SDC) | payer MEDICARE, OTHER ==
[~2024-05-27] MED LIST changes: +24HOUR ALLERGY10 MG PO; +CALCIUM500 M1 PO; +DOXYCYCLINE HY100 MG PO; +ECHINACEA125 M1 PO; +FISH OIL 1,001000 MG PO; +GABAPENTIN100 MG PO; +GINKGO BILOBA60 M1 PO; +GINSENG250 MG PO; +GLUCOSAMINE HC500 MG PO; +HYDROCODON-ACE1 EA10 PO; +LECITHIN1200 M1 PO; +LIDOCAINE 2% VISCOUS 11 ML SYR ONE; +MAGNESIUM OXID400 M1 PO; +OMEGA 3-6-9 11200 M1 PO; +POTASSIUM99 M3 PO; +TYLENOL325 MG PO; +VITAMIN B COMP1 EACH PO; +VITAMIN C1000 MG PO; +VITAMIN E100 UNI2 PO
--- NOTE | 2024-05-27 09:51 | NUR ---
LE 0935: PT IS DC'D HOME AMBULATORY.
== END ==
LOC: DS 03-18 12:15 → DSVR 08:33 → DS 08:33
PROVIDERS: ATTEND Urology
PROC: 0TJB8ZZ Inspection of Bladder, Via Natural or Artificial Opening Endoscopic (ICD-10-PCS; principal; 2024-05-27 10:15)
DX: C67.8 Malignant neoplasm of overlapping sites of bladder (principal); K21.9 Gastro-esophageal reflux disease without esophagitis; Z79.899 Other long term (current) drug therapy; Z88.2 Allergy status to sulfonamides; Z88.0 Allergy status to penicillin; Z88.5 Allergy status to narcotic agent; Z88.1 Allergy status to other antibiotic agents; Z90.49 Acquired absence of other specified parts of digestive tract
CPT/HCPCS: 52224; C1747; J3490

== ENCOUNTER 2024-07-12 08:45 | Day surgery (SDC) | payer MEDICARE, OTHER ==
[2024-07-07 09:47] VITALS: BP 162/87
[~2024-07-12] VITALS: Ht 185.4 cm; Wt 86.4 kg
[~2024-07-12 08:45] MED LIST changes: +BAYER CHEWABLE81 MG PO; +CEFAZOLIN SODIUM 2 GM/20 ML SYR IV SCH; +IBLOOD GLUCOSE TEST STRIP 1 EA TEST VI PRN; +LACTATED RINGER'S 1,000 ML IV SCH; -LIDOCAINE 2% VISCOUS 11 ML SYR ONE; +LIDOCAINE HCL 1% 5 ML SDV INJ ONE; +mitoMYcin 40 MG/20 ML VIAL BLADIN SCH
[2024-07-12 09:02] VITALS: BP 160/93
[2024-07-12] MEDS ORDERED: HYDROmorphone HCL 1 MG/ML SYR IV PRN (11:30)
[2024-07-12] MEDS ORDERED: ondansetron HCL 4 MG/2 ML VIAL IV PRN ×2 (11:30→14:45)
[2024-07-12] MEDS ORDERED: OXYCODONE/APAP 5/325 TAB PO PRN (11:30)
[2024-07-12] MEDS ORDERED: ROCURONIUM BROMIDE 50 MG/5 ML SYR ONE ×2 (12:47→14:47)
[2024-07-12] MEDS ORDERED: fentaNYL citrate 100 MCG/2 ML VIAL ONE (12:47)
[2024-07-12] MEDS ORDERED: propofoL 200 MG/20 ML VIAL ONE (12:47)
[2024-07-12] MEDS ORDERED: LIDOCAINE HCL 2% 5 ML SDV ONE (12:47)
[2024-07-12] MEDS ORDERED: SEVOFLURANE 250 ML BTL INH ONE (13:14)
[2024-07-12] MEDS ORDERED: ondansetron HCL 4 MG/2 ML VIAL ONE (14:35)
[2024-07-12] MEDS ORDERED: DEXAMETHASONE SOD PHOS 4 MG/ML VIAL ONE (14:35)
[2024-07-12] MEDS ORDERED: IBLOOD GLUCOSE TEST STRIP 1 EA TEST VI PRN (14:45)
[2024-07-12] MEDS ORDERED: fentaNYL citrate 50 MCG/ML SDV IV PRN (14:45)
[2024-07-12] MEDS ORDERED: NALOXONE HCL 0.4 MG SYR IV PRN (14:45)
[2024-07-12] MEDS ORDERED: SUGAMMADEX SODIUM 200 MG/2 ML ML ONE (14:59)
--- NOTE | 2024-07-12 15:42 | NUR ---
PT ARRIVED TO FLOOR VIA STRETCHER. PT ORIENTED TO ROOM AND CALL LIGHT. PT ON LEFT SIDE. WILL BE MOVED TO BACK AT 1602 FOR 20 MINS. PT HAS NO COMPLAINTS OF PAIN AT THIS TIME. PT REQUESTING WATER. WATER GIVEN AT THIS TIME. DENIES FURTHER NEEDS. CALL LIGHT WITHIN REACH.
[2024-07-12 15:50] VITALS: BP 145/90
--- NOTE | 2024-07-12 16:05 | NUR ---
07/12/24 1605 Felisa Zuniga 1515- ARRIVES TO PACU AND TALKING WITH RN, PT TO BE TURNED Q20 THAT STARTED AT 1502, AND TO BE ROLLED AT 1522. PT ARRIVES TO THE PACU WITH A NATURAL AIRWAY ON 6L OF O2 VIA MASK. BREATHING IS EVEN AND UNLABORED. LR INFUSING IN R HAND. PT IS IN SEMI FOWLERS POSITION. PT NODS HIS HEAD YES TO PAIN BUT UNABLE TO GIVE A NUMBER, WITH NO APPARENT DISTRESS. PT DENIES NAUSEA AND IS RESTING. ALL MONITORS PUT IN PLACE. TAYLOR CATHETER IS IN PLACE AND IN THE STAT-LOCK ATTACHED TO HIS ABDOMEN WITH NO DRAINAGE. 1519- O2 IS TURNED OFF AT PT SATS ARE IN THE HIGH 90S. PT IS ABLE TO MAINTAIN SATS IN THE MID 90S. 1522- PT IS ROLLED WITH ASSISTANCE TO HIS R SIDE FOR THE MYTOMYCIN PROCEDURE. 1524- PT IS EDUCATED ON MEDICATION IN THE BLADDER. PT DOES NOT RESPOND. 1536- PT IS RE-EDUCATED ON MEDICATION IN THE BLADDER. PT VERBALIZES UNDERSTANDING. ALL QUESTIONS ANSWERED. 1542- PT VSS. PT ROLLED TO HIS LEFT SIDE FOR MYTOMYCIN PROCEDURE. 1545- PT BROUGHT TO DAY SURGERY. BEDSIDE REPORT GIVEN TO LOUIE MERLOS. CATHETER SITE OBSERVED TOGETHER, WITH NO DRAINAGE NOTED. NO QUESTIONS OR CONCERNS. PT CONTINUES TO DENY PAIN AND NAUSEA, ALTHOUGH HAS A HEADACHE. CARE TURNED OVER AT THIS TIME.
[2024-07-12 16:39] VITALS: BP 164/107
--- NOTE | 2024-07-12 16:39 | NUR ---
1602: PT WAS ROLLED TO STOMACH AT THIS TIME. 1622: PT WAS ROLLED BACK TO HIS BACK AND MEDICATION WAS REMOVED FROM HIS BLADDER AT THIS TIME BY HOOKING TAYLOR BAG TO CATHETER. 1630: CATHETER BAG WAS DISCONTINUED AT THIS TIME. NEW BAG WAS PLACED. INSTRUCTED PATIENT AT THIS TIME ON HOW TO USE AND EMPTY TAYLOR BAG. PT VERBALIZED UNDERSTANDING.
--- NOTE | 2024-07-12 17:26 | NUR ---
PT DISCAHRGED TO HOME WITH ALL BELONGINGS AND INSTRUCTIONS ON FOLLOW-UP, MEIDCATION, TAYLOR CARE, ACTIVITY, AND DIET. PT VERBALIZED UNDERSTANDING AND LEFT FOR HOME.
--- NOTE | 2024-07-13 10:42 | PATH ---
[facility] [address] [place], [place] [address] Signed SPECIMEN(S): A BLADDER MASS SPECIMEN SOURCE: A. BLADDER MASS CLINICAL HISTORY: History of bladder cancer, left ureteral stenosis, right testicular pain, bladder tumor FINAL PATHOLOGIC DIAGNOSIS: Bladder, biopsy: - Urothelial mucosa with no significant pathologic changes; negative for dysplasia or malignancy - Muscularis propria present BRP MICROSCOPIC EXAMINATION: Histologic sections of all submitted blocks are examined by light microscopy. These findings, together with the gross examination, support the pathologic diagnosis. GROSS DESCRIPTION: The specimen, labeled and designated "Marin bladder mass, recurrent," is received in formalin and consists of three corado soft tissue fragments, ranging from 0.2-0.5 cm. Entirely submitted in (A1). VB (under the direct supervision of a pathologist) The Gross Description was prepared using a voice recognition system. The report was reviewed for accuracy; however, sound-alike word errors, addition and/or deletions may occur. If there is any question about this report, please contact Client Services. ADDITIONAL NOTES: Immunohistochemical and/or in situ hybridization studies if performed in this case included appropriate positive controls that reacted as expected. This test was developed and its performance characteristics determined by [facility]. It has not been cleared or approved by the U.S. Food and Drug Administration. The FDA has determined that such clearance or approval is not necessary. This test is used for clinical purposes. It should not be regarded as investigational or for research. [facility] is certified under the PATIENT NAME: NATALYA CASTILLO PATHOLOGY DATE OF : 43 REPORT #: [id number] PHYSICIAN: JOEY ROJAS PCP: ALEXANDER OWUSU MD REPORT IS CONFIDENTIAL AND NOT TO BE RELEASED WITHOUT AUTHORIZATION [facility] [address] [facility] [place], [place] [address] Signed Clinical Laboratory Improvement Amendments of 1988 (CLIA) as qualified to perform high complexity clinical laboratory testing. PERFORMING LABORATORY: Technical component was performed by [facility], [address] [place] [address] (CLIA# [id number]). Professional interpretation was performed by [facility] [address] [place] [id number] Diagnostician: Brian Partida MD Pathologist Electronically Signed 07/13/2024 Copies: ~ PATIENT NAME: NATALYA CASTILLO PATHOLOGY DATE OF : 43 REPORT #: [id number] PHYSICIAN: JOEY ROJAS PCP: ALEXANDER OWUSU MD REPORT IS CONFIDENTIAL AND NOT TO BE RELEASED WITHOUT AUTHORIZATION
== END 2024-07-12 17:24 | disposition home or self-care (01) ==
LOC: DS 08:45
PROVIDERS: ATTEND Urology
PROC: 0TBB8ZZ Excision of Bladder, Via Natural or Artificial Opening Endoscopic (ICD-10-PCS; principal; 2024-07-12 10:30)
PROC: 3E0M305 Introduction of Other Antineoplastic into Peritoneal Cavity, Percutaneous Approach (ICD-10-PCS; 2024-07-12 10:30)
DX: D30.3 Benign neoplasm of bladder (principal); N13.5 Crossing vessel and stricture of ureter without hydronephrosis; K21.9 Gastro-esophageal reflux disease without esophagitis; Z85.51 Personal history of malignant neoplasm of bladder; Z88.0 Allergy status to penicillin; Z88.1 Allergy status to other antibiotic agents; Z88.2 Allergy status to sulfonamides; Z88.6 Allergy status to analgesic agent; Z88.5 Allergy status to narcotic agent; Z79.899 Other long term (current) drug therapy; Z98.52 Vasectomy status; Z90.49 Acquired absence of other specified parts of digestive tract
CPT/HCPCS: 00912; 88305; J0690; J1100; J2003; J2405; J2704; J3010; J3490; J7121; J9280